=== PATIENT | female | born 1985 ===

== ENCOUNTER 2019-06-07 10:24 | Emergency (ER) | payer OTHER ==
[2019-06-07 10:43] VITALS: RESP 16
--- NOTE | 2019-06-07 11:32 | ED ---
ENT HPI - General Chief complaint: ENT Stated complaint: ear pain Time Seen by Provider: 06/07/19 10:49 Source: patient Mode of arrival: EMS Limitations: no limitations - History of Present Illness Initial comments: Patient is a 33-year-old female presenting to the emergency Department with complaints of bilateral ear pain secondary to bilateral ear infection has been going on for 3 days. Patient states she went to [facility] ER approximately 3 days ago and was diagnosed with a double ear infection and was placed on oral amoxicillin and eardrops. Patient was to see an ENT today however when she got to the office they told her that they do not accept her insurance. They were supposed to placed ear hussein today. Patient is presenting for an increase in pain and stating she does not believe the eardrops getting into her ear. Patient states she had 100 temperature yesterday. Patient denies nausea, vomiting, abdominal pain. Patient has no other complaints at this time. Upon arrival to the ER, vital signs are stable. - Related Data Home Medications Medication Instructions Recorded Confirmed ARIPiprazole [Abilify] 30 mg PO HS 06/07/19 06/07/19 Acetaminophen Tab [Tylenol Tab] 650 mg PO Q4H PRN 06/07/19 06/07/19 Dextroamphetamine/Amphetamine 20 mg PO BID 06/07/19 06/07/19 [Adderall] Gabapentin [Neurontin] 200 mg PO HS 06/07/19 06/07/19 Ibuprofen [Motrin] 800 mg PO Q6H PRN 06/07/19 06/07/19 Methotrexate Sodium [Methotrexate] 7.5 mg PO SA 06/07/19 06/07/19 Venlafaxine HCl [Effexor XR] 150 mg PO HS 06/07/19 06/07/19 Previous Rx's Medication Instructions Recorded Hydrocodone/Acetaminophen [[place] 1 tab PO Q6HR PRN 2 Days #6 tab 06/07/19 5-325] Allergies Allergy/AdvReac Type Severity Reaction Status Date / Time No Known Allergies Allergy Unverified 06/07/19 10:33 Review of Systems ROS Statement: Those systems with pertinent positive or pertinent negative responses have been documented in the HPI. ROS Other: All systems not noted in ROS Statement are negative. General Exam - General Exam Comments Initial Comments: GENERAL: Well-appearing, well-nourished and in no acute distress. HEAD: Atraumatic, normocephalic. EYES: Pupils equal round and reactive to light, extraocular movements intact, sclera anicteric, conjunctiva are normal. ENT: Bilateral EACs are edematous, erythematous and painful. Bilateral TMs are not visible secondary to swelling. Nares patent, oropharynx clear without exudates. Moist mucous membranes. NECK: Normal range of motion, supple without lymphadenopathy or JVD. LUNGS: Breath sounds clear to auscultation bilaterally and equal. No wheezes rales or rhonchi. HEART: Regular rate and rhythm without murmurs, rubs or gallops. ABDOMEN: Soft, nontender, normoactive bowel sounds. No guarding, no rebound. No masses appreciated. : Deferred EXTREMITIES: Normal range of motion, no pitting or edema. No clubbing or cyanosis. NEUROLOGICAL: Cranial nerves II through XII grossly intact. Normal speech, normal gait. PSYCH: Normal mood, normal affect. SKIN: Warm, Dry, normal turgor. Patient has rashes secondary to psoriasis behind ears, and scalp. Limitations: no limitations Course Vital Signs 06/07/19 06/07/19 06/07/19 10:36 11:40 13:24 Temperature 97.5 F L 97.3 F L 97.3 F L Pulse Rate 104 H 94 94 Respiratory 16 16 16 Rate Blood Pressure 140/105 140/92 140/92 O2 Sat by Pulse 100 100 100 Oximetry Medical Decision Making - Medical Decision Making Patient is a 33-year-old female presenting with bilateral otitis externa. Patient was started on amoxicillin and eardrops approximately 3 days ago by [facility] ER. Patient went to an ENT for follow-up however when she got to the appointment they said they do not accept her insurance. So patient came here secondary to an increase in pain and not able to get eardrops in her ear. On exam patient has bilateral EAC swelling and pain with palpation. Patient was given pain medications and bilateral ear hussein were placed. Patient was given eardrops and short course of pain meds to go home with. Patient was given another ENT referral. Patient will continue amoxicillin. Patient stable for discharge at this time. Return parameters were discussed with patient she verbalized understanding. Case discussed with Dr. Weathers. Disposition Clinical Impression: Otitis externa of both ears Disposition: HOME SELF-CARE Condition: Stable Instructions (If sedation given, give patient instructions): Otitis Externa (ED) Additional Instructions: Please return to the Emergency Department if symptoms worsen or any other concerns. Follow-up with ENT as discussed. Prescriptions: Hydrocodone/Acetaminophen [[place] 5-325] 1 tab PO Q6HR PRN 2 Days #6 tab PRN Reason: Pain Is patient prescribed a controlled substance at d/c from ED?: Yes Referrals: Nonstaff,Physician [Primary Care Provider] - 1-2 days Adrián Donovan MD [STAFF PHYSICIAN] - 1-2 days
[2019-06-07 11:40] VITALS: BP 140/92; PULSE 94; TEMP 97.3
[2019-06-07] MEDS: KETOROLAC 60 MG/2 ML VIAL IM STA ×2 (11:44→11:56)
[2019-06-07] MEDS ORDERED: CIPROFLOXACIN-DEXAMETH 0.3-0.1% DROPS 7.5 ML BTL BOTH EARS STA (12:18)
[2019-06-07] MEDS ORDERED: HYDROcodone/APAP 5-325MG 1 EACH TAB PO STA (12:19)
[2019-06-07] MEDS ORDERED: NEOMYCIN-POLYMYXIN-HC (3.5-10,000-10 MG) OTIC DROPS 10 ML BTL BOTH EARS STA (12:27)
== END 2019-06-07 13:26 | disposition home or self-care (01) ==
LOC: EC 10:24
DX: H60.93 Unspecified otitis externa, bilateral (principal); L40.9 Psoriasis, unspecified; Z79.899 Other long term (current) drug therapy
CPT/HCPCS: 99283; 96372; J1885

== ENCOUNTER 2019-08-26 19:05 | Emergency (ER) | payer OTHER ==
[2019-08-26 19:34] VITALS: RESP 18; TEMP 97.4
[2019-08-26] MEDS ORDERED: MORPHINE SULFATE 4 MG/ML SYRINGE IV STA (19:48)
[2019-08-26] MEDS ORDERED: SODIUM CHLORIDE 0.9% 1,000 ML IV STA ×2 (19:48)
[2019-08-26] MEDS ORDERED: SODIUM CHLORIDE 0.9% 500 ML 500 ML IV STA (19:48)
[2019-08-26] MEDS ORDERED: ONDANSETRON 4 MG/2 ML VIAL IVP STA (19:48)
[2019-08-26] MEDS ORDERED: KETOROLAC 30 MG/ML 1 ML VIAL IVP STA (19:49)
--- NOTE | 2019-08-26 19:50 | ED ---
Female Urogenital HPI - General Chief complaint: Urogenital Stated complaint: back pain Time Seen by Provider: 08/26/19 19:08 Source: patient, EMS, RN notes reviewed, old records reviewed Mode of arrival: EMS Limitations: no limitations - History of Present Illness Initial comments: this is a 30-year-old female here for evaluation patient closely for evaluation regards to proteinaceous versus urinary tract infection she was treated in patient facility UTI kidney infection. Patient states symptoms have been persistent with bilateral flank pain but no fevers no nausea vomiting no diarrhea no other complaints. Patient did take medication as prescribed. No significant medical history no travel history or sick contacts MD Complaint: dysuria, other (bilateral flank pain) -: days(s) Radiation: L flank, R flank Severity: mild Severity scale (1-10): 2 Quality: dull Consistency: constant Improves with: none Patient : No Associated Symptoms: denies other symptoms - Related Data Sexually active: No Home Medications Medication Instructions Recorded Confirmed ARIPiprazole [Abilify] 30 mg PO HS 06/07/19 06/07/19 Acetaminophen Tab [Tylenol Tab] 650 mg PO Q4H PRN 06/07/19 06/07/19 Dextroamphetamine/Amphetamine 20 mg PO BID 06/07/19 06/07/19 [Adderall] Gabapentin [Neurontin] 200 mg PO HS 06/07/19 06/07/19 Ibuprofen [Motrin] 800 mg PO Q6H PRN 06/07/19 06/07/19 Methotrexate Sodium [Methotrexate] 7.5 mg PO SA 06/07/19 06/07/19 Venlafaxine HCl [Effexor XR] 150 mg PO HS 06/07/19 06/07/19 Previous Rx's Medication Instructions Recorded Hydrocodone/Acetaminophen [[place] 1 tab PO Q6HR PRN 2 Days #6 tab 06/07/19 5-325] Allergies Allergy/AdvReac Type Severity Reaction Status Date / Time No Known Allergies Allergy Unverified 06/07/19 10:33 Review of Systems ROS Statement: Those systems with pertinent positive or pertinent negative responses have been documented in the HPI. ROS Other: All systems not noted in ROS Statement are negative. Past Medical History Past Medical History: Diabetes Mellitus History of Any Multi-Drug Resistant Organisms: None Reported Past Psychological History: No Psychological Hx Reported Smoking Status: Current every day smoker Past Alcohol Use History: None Reported Past Drug Use History: None Reported General Exam Limitations: no limitations General appearance: alert, in no apparent distress Head exam: Present: atraumatic, normocephalic, normal inspection Eye exam: Present: normal appearance, PERRL, EOMI. Absent: scleral icterus, conjunctival injection, periorbital swelling ENT exam: Present: normal exam, mucous membranes moist Neck exam: Present: normal inspection. Absent: tenderness, meningismus, lymphadenopathy Respiratory exam: Present: normal lung sounds bilaterally. Absent: respiratory distress, wheezes, rales, rhonchi, stridor Cardiovascular Exam: Present: regular rate, normal rhythm, normal heart sounds. Absent: systolic murmur, diastolic murmur, rubs, gallop, clicks GI/Abdominal exam: Present: soft, normal bowel sounds. Absent: distended, tenderness, guarding, rebound, rigid Extremities exam: Present: normal inspection, full ROM, normal capillary refill. Absent: tenderness, pedal edema, joint swelling, calf tenderness Back exam: Present: normal inspection Neurological exam: Present: alert, oriented X3, CN II-XII intact Psychiatric exam: Present: normal affect, normal mood Skin exam: Present: warm, dry, intact, normal color. Absent: rash Course Vital Signs 08/26/19 08/26/19 19:20 22:29 Temperature 97.4 F L Pulse Rate 103 H 98 Respiratory 18 18 Rate Blood Pressure 130/90 132/94 O2 Sat by Pulse 100 100 Oximetry - Reevaluation(s) Reevaluation #1: medical record and prior testing have been reviewed Is in no acute distress Medical Decision Making - Medical Decision Making 33-year-old female ER for evaluation with what she believes is persistent urinary tract infection patient is CT labwork urine negative. The ER. Patient will be discharged home - Lab Data Result diagrams: 08/26/19 20:29 08/26/19 20:29 Lab Results 08/26/19 08/26/19 12 Range/Units 20:29 20:29 20:29 WBC 6.5 (3.8-10.6) k/uL RBC 4.68 (3.80-5.40) m/uL Hgb 13.9 (11.4-16.0) gm/dL Hct 41.4 (34.0-46.0) % MCV 88.4 (80.0-100.0) fL MCH 29.7 (25.0-35.0) pg MCHC 33.6 (31.0-37.0) g/dL RDW 14.7 (11.5-15.5) % Plt Count 378 (150-450) k/uL Neutrophils % 58 % Lymphocytes % 33 % Monocytes % 5 % Eosinophils % 3 % Basophils % 1 % Neutrophils # 3.8 (1.3-7.7) k/uL Lymphocytes # 2.1 (1.0-4.8) k/uL Monocytes # 0.3 (0-1.0) k/uL Eosinophils # 0.2 (0-0.7) k/uL Basophils # 0.0 (0-0.2) k/uL Sodium 138 (137-145) mmol/L Potassium 4.7 (3.5-5.1) mmol/L Chloride 102 (98-107) mmol/L Carbon Dioxide 27 (22-30) mmol/L Anion Gap 9 mmol/L BUN 11 (7-17) mg/dL Creatinine 0.87 (0.52-1.04) mg/dL Est GFR (CKD-EPI)AfAm >90 (>60 ml/min/1.73 sqM) Est GFR (CKD-EPI)NonAf 88 (>60 ml/min/1.73 sqM) Glucose 74 (74-99) mg/dL Plasma Lactic Acid [place] 1.2 (0.7-2.0) mmol/L Calcium 10.1 (8.4-10.2) mg/dL Phosphorus 3.9 (2.5-4.5) mg/dL Magnesium 2.1 (1.6-2.3) mg/dL Total Bilirubin 0.3 (0.2-1.3) mg/dL AST 23 (14-36) U/L ALT 34 (9-52) U/L Alkaline Phosphatase 61 (38-126) U/L Creatine Kinase 24 L (30-135) U/L Total Protein 7.8 (6.3-8.2) g/dL Albumin 4.8 (3.5-5.0) g/dL Urine Color Urine Appearance (Clear) Urine pH (5.0-8.0) Ur Specific [place] (1.001-1.035) Urine Protein (Negative) Urine Glucose (UA) (Negative) Urine Ketones (Negative) Urine Blood (Negative) Urine Nitrite (Negative) Urine Bilirubin (Negative) Urine Urobilinogen (<2.0) mg/dL Ur Leukocyte Esterase (Negative) Urine RBC (0-5) /hpf Urine WBC (0-5) /hpf Ur Squamous Epith Cells (0-4) /hpf Urine Mucus (None) /hpf 08/26/19 Range/Units 20:29 WBC (3.8-10.6) k/uL RBC (3.80-5.40) m/uL Hgb (11.4-16.0) gm/dL Hct (34.0-46.0) % MCV (80.0-100.0) fL MCH (25.0-35.0) pg MCHC (31.0-37.0) g/dL RDW (11.5-15.5) % Plt Count (150-450) k/uL Neutrophils % % Lymphocytes % % Monocytes % % Eosinophils % % Basophils % % Neutrophils # (1.3-7.7) k/uL Lymphocytes # (1.0-4.8) k/uL Monocytes # (0-1.0) k/uL Eosinophils # (0-0.7) k/uL Basophils # (0-0.2) k/uL Sodium (137-145) mmol/L Potassium (3.5-5.1) mmol/L Chloride (98-107) mmol/L Carbon Dioxide (22-30) mmol/L Anion Gap mmol/L BUN (7-17) mg/dL Creatinine (0.52-1.04) mg/dL Est GFR (CKD-EPI)AfAm (>60 ml/min/1.73 sqM) Est GFR (CKD-EPI)NonAf (>60 ml/min/1.73 sqM) Glucose (74-99) mg/dL Plasma Lactic Acid [place] (0.7-2.0) mmol/L Calcium (8.4-10.2) mg/dL Phosphorus (2.5-4.5) mg/dL Magnesium (1.6-2.3) mg/dL Total Bilirubin (0.2-1.3) mg/dL AST (14-36) U/L ALT (9-52) U/L Alkaline Phosphatase (38-126) U/L Creatine Kinase (30-135) U/L Total Protein (6.3-8.2) g/dL Albumin (3.5-5.0) g/dL Urine Color Yellow Urine Appearance Clear (Clear) Urine pH 6.5 (5.0-8.0) Ur Specific [place] 1.008 (1.001-1.035) Urine Protein Negative (Negative) Urine Glucose (UA) Negative (Negative) Urine Ketones Negative (Negative) Urine Blood Moderate H (Negative) Urine Nitrite Negative (Negative) Urine Bilirubin Negative (Negative) Urine Urobilinogen <2.0 (<2.0) mg/dL Ur Leukocyte Esterase Negative (Negative) Urine RBC 1 (0-5) /hpf Urine WBC 2 (0-5) /hpf Ur Squamous Epith Cells 4 (0-4) /hpf Urine Mucus Rare H (None) /hpf - EKG Data -: EKG Interpreted by Me (EKG shows sinus tachycardia rate of 104, RI 160, QRS 80, QTC 431) Disposition Clinical Impression: Bilateral flank pain Disposition: HOME SELF-CARE Condition: Good Instructions (If sedation given, give patient instructions): Flank Pain (ED) Is patient prescribed a controlled substance at d/c from ED?: No Referrals: Ajay Hart MD [Primary Care Provider] - 1-2 days
[2019-08-26 20:40] LABS: Basophils % (A) 1 %; Eosinophils # (A) 0.2 k/uL (0-0.7); Eosinophils % (A) 3 %; HCT 41.4 % (34.0-46.0); HGB 13.9 gm/dL (11.4-16.0); Lymphocytes # (A) 2.1 k/uL (1.0-4.8); Lymphocytes % (A) 33 %; MCH 29.7 pg (25.0-35.0); MCHC 33.6 g/dL (31.0-37.0); MCV 88.4 fL (80.0-100.0); Mean Platelet Volume 9.4; Monocytes # (A) 0.3 k/uL (0-1.0); Monocytes % (A) 5 %; Neutrophils # (A) 3.8 k/uL (1.3-7.7); Neutrophils % (A) 58 %; Platelet Count 378 k/uL (150-450); RBC 4.68 m/uL (3.80-5.40); RDW 14.7 % (11.5-15.5); WBC 6.5 k/uL (3.8-10.6)
[2019-08-26 20:41] LABS: Appearance,Urine Clear (Clear); Bilirubin,Urine Negative (Negative); Blood,Urine Moderate (Negative); Color,Urine Yellow; Glucose,Urine (UA) Negative (Negative); Ketones,Urine Negative (Negative); Leukocyte Esterase,Urine Negative (Negative); Mucus,Urine Rare /hpf; Nitrite,Urine Negative (Negative); PH, Urine 6.5 (5.0-8.0); Protein,Urine Negative (Negative); RBC,Urine 1 /hpf (0-5); Specific Gravity,Urine 1.008 (1.001-1.035); Squamous Epithelial Cell,Urine 4 /hpf (0-4); Urobilinogen,Urine <2.0 mg/dL (<2.0); WBC,Urine 2 /hpf (0-5)
[2019-08-26 20:56] LABS: ALT 34 U/L (9-52); AST 23 U/L (14-36); African American GFR (CKD) >90 (>60 ml/min/1.73 sqM); Albumin 4.8 g/dL (3.5-5.0); Alkaline Phosphatase 61 U/L (38-126); Anion Gap 9 mmol/L; Blood Urea Nitrogen 11 mg/dL (7-17); Calcium 10.1 mg/dL (8.4-10.2); Carbon Dioxide 27 mmol/L (22-30); Chloride 102 mmol/L (98-107); Creatine Kinase 24 U/L (30-135); Glucose 74 mg/dL (74-99); Magnesium 2.1 mg/dL (1.6-2.3); Non-African American GFR(CKD) 88 (>60 ml/min/1.73 sqM); Phosphorus 3.9 mg/dL (2.5-4.5); Potassium 4.7 mmol/L (3.5-5.1); Sodium 138 mmol/L (137-145); Total Bilirubin 0.3 mg/dL (0.2-1.3); Total Protein 7.8 g/dL (6.3-8.2)
--- NOTE | 2019-08-26 21:31 | CT ---
EXAMINATION TYPE: CT abdomen pelvis wo con DATE OF EXAM: 08/26/2019 COMPARISON: None HISTORY: Pain. Pt states she has been treated for kidney infection that is not clearing up CT DLP: 913.3 mGycm Automated exposure control for dose reduction was used. Multiple axial sections were obtained from the diaphragm to the floor the pelvis with no contrast. Lung bases are clear. There is no pleural effusion. Heart size is normal. Liver spleen pancreas gallbladder stomach appear normal. Bile ducts are not dilated. There is no adre nal mass. Kidneys have normal size and contour. There is no hydronephrosis. There is no retroperitone al adenopathy. Appendix appears normal. Ureters are not dilated. Bladder distends smoothly. There is no inguinal hernia. Uterus is anteverted. There is no free fluid in the pelvis. There is no mesenteri c edema. There is no ascites or free air. There is small umbilical hernia that contains fat. Lumbar vertebra have normal spacing and alignment. Posterior elements are intact. The bony pelvis is intact. IMPRESSION: Small umbilical hernia. Normal appendix. No renal stone or obstruction.
[2019-08-26 22:32] VITALS: BP 132/94; PULSE 98
== END 2019-08-26 22:40 | disposition home or self-care (01) ==
LOC: EC 19:05
DX: R10.9 Unspecified abdominal pain (principal); R30.0 Dysuria; F17.200 Nicotine dependence, unspecified, uncomplicated
CPT/HCPCS: 36415; 93005; 80053; 82550; 83605; 83735; 84100; 85025; 81001; 87040; 74176; 99285; 96365; 96375 ×3; 96361; J2270; J2405; J0696; J1885

== ENCOUNTER 2020-04-18 22:37 | Emergency (ER) | payer OTHER ==
[2020-04-18] MEDS ORDERED: ACETAMINOPHEN TAB 500 MG TAB PO STA (23:11)
--- NOTE | 2020-04-18 23:47 | US ---
EXAMINATION TYPE: US venous doppler duplex UE LT DATE OF EXAM: 04/18/2020 COMPARISON: NONE CLINICAL HISTORY: pain, swelling. left arm pain SIDE PERFORMED: left Left Arm: no evidence of DVT as visualized IMPRESSION: No evidence of deep vein thrombosis in the left arm.
--- NOTE | 2020-04-18 23:53 | XR ---
EXAMINATION TYPE: XR chest 2V DATE OF EXAM: 04/18/2020 COMPARISON: NONE HISTORY: Chest pain TECHNIQUE: 2 views FINDINGS: Heart and mediastinum are normal. Lungs are clear. Diaphragm is normal. Bony thorax appears normal. IMPRESSION: Normal chest
--- NOTE | 2020-04-19 00:02 | ED ---
General Adult HPI - General Chief complaint: Extremity Injury, Upper Stated complaint: Lt Arm Pain Time Seen by Provider: 04/18/20 22:47 Source: patient, RN notes reviewed, old records reviewed Mode of arrival: ambulatory Limitations: no limitations - History of Present Illness Initial comments: Patient is a 34-year-old female who presents emergency department today with 2 days of left arm irritation and pain within the muscles. She states she's noticed some swelling as well. She was seen at [facility] yesterday had x- rays which were negative and placed in Brent wrap. She reports the swelling seemed to be worse so she took the Brent wrap off. She stated that she was feeling unwell or had a fever that he medics wrist provider told her to come to the ER for an ultrasound and further evaluation. She states that she is a smoker. States she felt slightly febrile and was concerned for the swelling of this time. She states no history of blood clots. Patient reports that the pain started within her left wrist. - Related Data Home Medications Medication Instructions Recorded Confirmed ARIPiprazole [Abilify] 30 mg PO HS 06/07/19 06/07/19 Acetaminophen Tab [Tylenol Tab] 650 mg PO Q4H PRN 06/07/19 06/07/19 Dextroamphetamine/Amphetamine 20 mg PO BID 06/07/19 06/07/19 [Adderall] Gabapentin [Neurontin] 200 mg PO HS 06/07/19 06/07/19 Ibuprofen [Motrin] 800 mg PO Q6H PRN 06/07/19 06/07/19 Venlafaxine HCl [Effexor XR] 150 mg PO HS 06/07/19 06/07/19 metHOTREXate sodium [Methotrexate] 7.5 mg PO SA 06/07/19 06/07/19 Previous Rx's Medication Instructions Recorded Hydrocodone/Acetaminophen [[place] 1 tab PO Q6HR PRN 2 Days #6 tab 06/07/19 5-325] Allergies Allergy/AdvReac Type Severity Reaction Status Date / Time No Known Allergies Allergy Verified 04/18/20 22:58 Review of Systems ROS Statement: Those systems with pertinent positive or pertinent negative responses have been documented in the HPI. ROS Other: All systems not noted in ROS Statement are negative. Past Medical History Past Medical History: Diabetes Mellitus Additional Past Medical History / Comment(s): endometriosis History of Any Multi-Drug Resistant Organisms: None Reported Additional Past Surgical History / Comment(s): exp lap Past Psychological History: No Psychological Hx Reported Smoking Status: Current every day smoker Past Alcohol Use History: None Reported Past Drug Use History: None Reported General Exam - General Exam Comments Initial Comments: 34-year-old female. Alert and oriented. Limitations: no limitations General appearance: alert, in no apparent distress Head exam: Present: atraumatic, normocephalic, normal inspection Eye exam: Present: normal appearance, PERRL, EOMI. Absent: scleral icterus, conjunctival injection, periorbital swelling ENT exam: Present: normal exam, mucous membranes moist Neck exam: Present: normal inspection. Absent: tenderness, meningismus, lymphadenopathy Respiratory exam: Present: normal lung sounds bilaterally. Absent: respiratory distress, wheezes, rales, rhonchi, stridor Cardiovascular Exam: Present: regular rate, normal rhythm, normal heart sounds. Absent: systolic murmur, diastolic murmur, rubs, gallop, clicks GI/Abdominal exam: Present: soft, normal bowel sounds. Absent: distended, tenderness, guarding, rebound, rigid Extremities exam: Present: normal inspection, full ROM, normal capillary refill. Absent: tenderness, pedal edema, joint swelling, calf tenderness Left Upper Arm exam: Present: normal inspection, full ROM Elbow exam: Present: normal inspection, full ROM Forearm Wrist exam: Present: normal inspection, full ROM, other (Patient is mildly dilated veins on the left arm appear to the right. No overlying skin changes. Full range of motion of all extremity.) Hand Wrist exam: Present: normal inspection, full ROM Neuro motor exam: Present: wrist extension intact, thumb opposition intact, thumb IP flexion intact, thumb adduction intact, fingers 2-5 abduction intact Back exam: Present: normal inspection Neurological exam: Present: alert, oriented X3, CN II-XII intact Psychiatric exam: Present: normal affect, normal mood Skin exam: Present: warm, dry, intact, normal color. Absent: rash Course Vital Signs 04/18/20 04/18/20 22:54 23:15 Temperature 98.1 F 99.8 F H Pulse Rate 99 Respiratory 20 Rate Blood Pressure 141/83 Medical Decision Making - Medical Decision Making 34-year-old female presents to return today for concerns for swelling and pain in the left arm. She does have some mildly enlarged veins compared to the right. She is also concern for low-grade temperature 90.9. She is given Tylenol. She had x-rays at [facility] which showed no fracture she denies any fall or trauma to the arm. At this time there is no signs of rash or puncture wound. Ultrasound today is negative for DVT within the left arm. Chest x-ray was reviewed and normal. I advised the Patient to follow-up with her primary care physician. Take anti-inflammatory medication for pain. I discussed the Patient needs to wait for [place] testing with a low-grade temperature. Patient is agreeable to treatment plan. - Radiology Data Radiology results: report reviewed Chest x-ray is negative for acute process. Ultrasound is negative for DVT in left arm. Disposition Clinical Impression: Left arm pain Disposition: HOME SELF-CARE Condition: Good Instructions (If sedation given, give patient instructions): Arm Pain (ED), Hand Sprain (ED) Additional Instructions: Patient advised to follow-up with her primary care physician. Take Motrin Tylenol for pain. Return to emergency department if any alarming signs or symptoms occur. Is patient prescribed a controlled substance at d/c from ED?: No Referrals: Nonstaff,Physician [Primary Care Provider] - 1-2 days Beti Marie MD [REFERRING] - 1-2 days Time of Disposition: 00:24
[2020-04-19 00:36] VITALS: BP 135/80; PULSE 89; RESP 18; TEMP 98
== END 2020-04-19 00:37 | disposition home or self-care (01) ==
LOC: EC 22:37
DX: M79.602 Pain in left arm (principal); R50.9 Fever, unspecified; I87.8 Other specified disorders of veins; M79.89 Other specified soft tissue disorders; F17.200 Nicotine dependence, unspecified, uncomplicated; Z79.899 Other long term (current) drug therapy; Z20.828 Contact with and (suspected) exposure to other viral communicable diseases
CPT/HCPCS: 71046; 93971; 99284; U0003

== ENCOUNTER 2020-10-11 22:51 | Emergency (ER) | payer OTHER ==
[2020-10-11 23:06] VITALS: RESP 18
--- NOTE | 2020-10-11 23:17 | ED ---
General Adult HPI - General Chief complaint: Dizziness Stated complaint: Dizziness Time Seen by Provider: 10/11/20 23:00 Source: patient, EMS Mode of arrival: EMS Limitations: no limitations - History of Present Illness Initial comments: This patient is a 34-year-old woman who presents with complaint that she thinks she is coming down with urinary tract infection. Patient states she has history of interstitial cystitis and she does get frequent urinary tract infections. She states that about 2 days ago she noticed she was urinating more frequently. Her abdomen felt a little bloated. She is having some dysuria. She states that it feels a little different than usual in that today she noted she was feeling a little lightheaded and therefore she came here to be evaluated. Patient also had started taking some Azo for the suspected urinary tract infection. She has not noted fever or chills. No chest pain, dyspnea or cough, vomiting or diar omero. Patient states she has a little bit of chronic constipation secondary to using Suboxone. Onset/Timin -: days(s) Location: abdomen Radiation: non-radiation Quality: dull Consistency: constant Improves with: none Worsens with: other Associated Symptoms: other (Lightheadedness) Treatments Prior to Arrival: other (Basophils) - Related Data Home Medications Medication Instructions Recorded Confirmed ARIPiprazole [Abilify] 30 mg PO HS 06/07/19 06/07/19 Acetaminophen Tab [Tylenol Tab] 650 mg PO Q4H PRN 06/07/19 06/07/19 Dextroamphetamine/Amphetamine 20 mg PO BID 06/07/19 06/07/19 [Adderall] Gabapentin [Neurontin] 200 mg PO HS 06/07/19 06/07/19 Ibuprofen [Motrin] 800 mg PO Q6H PRN 06/07/19 06/07/19 Venlafaxine HCl [Effexor XR] 150 mg PO HS 06/07/19 06/07/19 metHOTREXate sodium [Methotrexate] 7.5 mg PO SA 06/07/19 06/07/19 Previous Rx's Medication Instructions Recorded Hydrocodone/Acetaminophen [[place] 1 tab PO Q6HR PRN 2 Days #6 tab 06/07/19 5-325] Allergies Allergy/AdvReac Type Severity Reaction Status Date / Time No Known Allergies Allergy Verified 04/18/20 22:58 Review of Systems ROS Statement: Those systems with pertinent positive or pertinent negative responses have been documented in the HPI. ROS Other: All systems not noted in ROS Statement are negative. Constitutional: Denies: fever, chills Respiratory: Denies: cough, dyspnea Cardiovascular: Denies: chest pain, palpitations, edema Gastrointestinal: Reports: abdominal pain Genitourinary: Reports: dysuria Musculoskeletal: Denies: back pain Skin: Reports: rash (Psoriasis) Neurological: Denies: headache, weakness Past Medical History Past Medical History: Diabetes Mellitus Additional Past Medical History / Comment(s): endometriosis History of Any Multi-Drug Resistant Organisms: None Reported Additional Past Surgical History / Comment(s): exp lap Past Psychological History: No Psychological Hx Reported Smoking Status: Current every day smoker Past Alcohol Use History: None Reported Past Drug Use History: None Reported General Exam Limitations: no limitations General appearance: alert, in no apparent distress Head exam: Present: atraumatic, normocephalic Eye exam: Present: normal appearance. Absent: scleral icterus, conjunctival injection ENT exam: Present: normal oropharynx Neck exam: Present: normal inspection, full ROM. Absent: meningismus, lymphadenopathy Respiratory exam: Present: normal lung sounds bilaterally. Absent: respiratory distress, wheezes, rales, rhonchi, stridor Cardiovascular Exam: Present: regular rate, normal rhythm, normal heart sounds. Absent: systolic murmur, diastolic murmur, rubs, gallop GI/Abdominal exam: Present: soft. Absent: distended, tenderness, guarding, rebound, rigid, mass Extremities exam: Present: normal inspection, normal capillary refill. Absent: pedal edema, calf tenderness Back exam: Present: normal inspection. Absent: CVA tenderness (R), CVA tenderness (L) Neurological exam: Present: alert Skin exam: Present: warm, dry, intact, normal color. Absent: rash Course Vital Signs 10/11/20 10/11/20 10/12/20 22:53 23:02 01:58 Temperature 98.0 F 98.1 F Pulse Rate 89 101 H Respiratory 16 18 18 Rate Blood Pressure 140/96 139/95 O2 Sat by Pulse 100 99 Oximetry Medical Decision Making - Lab Data Result diagrams: 10/12/20 00:08 10/12/20 00:08 Lab Results 10/11/20 10/11/20 10/12/20 Range/Units 23:37 23:37 00:08 WBC 4.9 (3.8-10.6) k/uL RBC 4.80 (3.80-5.40) m/uL Hgb 13.5 (11.4-16.0) gm/dL Hct 40.9 (34.0-46.0) % MCV 85.3 (80.0-100.0) fL MCH 28.1 (25.0-35.0) pg MCHC 33.0 (31.0-37.0) g/dL RDW 15.3 (11.5-15.5) % Plt Count 255 (150-450) k/uL MPV 8.7 Neutrophils % 46 % Lymphocytes % 37 % Monocytes % 8 % Eosinophils % 5 % Basophils % 1 % Neutrophils # 2.3 (1.3-7.7) k/uL Lymphocytes # 1.8 (1.0-4.8) k/uL Monocytes # 0.4 (0-1.0) k/uL Eosinophils # 0.3 (0-0.7) k/uL Basophils # 0.0 (0-0.2) k/uL Sodium (137-145) mmol/L Potassium (3.5-5.1) mmol/L Chloride (98-107) mmol/L Carbon Dioxide (22-30) mmol/L Anion Gap mmol/L BUN (7-17) mg/dL Creatinine (0.52-1.04) mg/dL Est GFR (CKD-EPI)AfAm (>60 ml/min/1.73 sqM) Est GFR (CKD-EPI)NonAf (>60 ml/min/1.73 sqM) Glucose (74-99) mg/dL Calcium (8.4-10.2) mg/dL Total Bilirubin (0.2-1.3) mg/dL AST (14-36) U/L ALT (4-34) U/L Alkaline Phosphatase (38-126) U/L Total Protein (6.3-8.2) g/dL Albumin (3.5-5.0) g/dL Urine Color Brown Urine Appearance Clear (Clear) Urine pH 5.5 (5.0-8.0) Ur Specific [place] 1.006 (1.001-1.035) Urine Protein Negative (Negative) Urine Glucose (UA) Negative (Negative) Urine Ketones Negative (Negative) Urine Blood Negative (Negative) Urine Nitrite Negative (Negative) Urine Bilirubin Negative (Negative) Urine Urobilinogen <2.0 (<2.0) mg/dL Ur Leukocyte Esterase Negative (Negative) Urine HCG, Qual Not Detected (Not Detectd) 10/12/20 Range/Units 00:08 WBC (3.8-10.6) k/uL RBC (3.80-5.40) m/uL Hgb (11.4-16.0) gm/dL Hct (34.0-46.0) % MCV (80.0-100.0) fL MCH (25.0-35.0) pg MCHC (31.0-37.0) g/dL RDW (11.5-15.5) % Plt Count (150-450) k/uL MPV Neutrophils % % Lymphocytes % % Monocytes % % Eosinophils % % Basophils % % Neutrophils # (1.3-7.7) k/uL Lymphocytes # (1.0-4.8) k/uL Monocytes # (0-1.0) k/uL Eosinophils # (0-0.7) k/uL Basophils # (0-0.2) k/uL Sodium 141 (137-145) mmol/L Potassium 4.8 (3.5-5.1) mmol/L Chloride 108 H (98-107) mmol/L Carbon Dioxide 25 (22-30) mmol/L Anion Gap 8 mmol/L BUN 18 H (7-17) mg/dL Creatinine 0.75 (0.52-1.04) mg/dL Est GFR (CKD-EPI)AfAm >90 (>60 ml/min/1.73 sqM) Est GFR (CKD-EPI)NonAf >90 (>60 ml/min/1.73 sqM) Glucose 91 (74-99) mg/dL Calcium 10.2 (8.4-10.2) mg/dL Total Bilirubin 0.4 (0.2-1.3) mg/dL AST 32 (14-36) U/L ALT 32 (4-34) U/L Alkaline Phosphatase 53 (38-126) U/L Total Protein 7.2 (6.3-8.2) g/dL Albumin 4.3 (3.5-5.0) g/dL Urine Color Urine Appearance (Clear) Urine pH (5.0-8.0) Ur Specific [place] (1.001-1.035) Urine Protein (Negative) Urine Glucose (UA) (Negative) Urine Ketones (Negative) Urine Blood (Negative) Urine Nitrite (Negative) Urine Bilirubin (Negative) Urine Urobilinogen (<2.0) mg/dL Ur Leukocyte Esterase (Negative) Urine HCG, Qual (Not Detectd) Disposition Clinical Impression: Viral syndrome, Constipation Disposition: HOME SELF-CARE Condition: Good Instructions (If sedation given, give patient instructions): Constipation (ED), Dizziness (ED) Is patient prescribed a controlled substance at d/c from ED?: No Referrals: None,Stated [Primary Care Provider] - 1-2 days
[2020-10-11 23:53] LABS: Appearance,Urine Clear (Clear); Bilirubin,Urine Negative (Negative); Blood,Urine Negative (Negative); Color,Urine Brown; Glucose,Urine (UA) Negative (Negative); Ketones,Urine Negative (Negative); Leukocyte Esterase,Urine Negative (Negative); Nitrite,Urine Negative (Negative); PH, Urine 5.5 (5.0-8.0); Protein,Urine Negative (Negative); Specific Gravity,Urine 1.006 (1.001-1.035); Urobilinogen,Urine <2.0 mg/dL (<2.0)
[2020-10-12 00:28] LABS: Basophils % (A) 1 %; Eosinophils # (A) 0.3 k/uL (0-0.7); Eosinophils % (A) 5 %; HCT 40.9 % (34.0-46.0); HGB 13.5 gm/dL (11.4-16.0); Lymphocytes # (A) 1.8 k/uL (1.0-4.8); Lymphocytes % (A) 37 %; MCH 28.1 pg (25.0-35.0); MCV 85.3 fL (80.0-100.0); Mean Platelet Volume 8.7; Monocytes # (A) 0.4 k/uL (0-1.0); Monocytes % (A) 8 %; Neutrophils # (A) 2.3 k/uL (1.3-7.7); Neutrophils % (A) 46 %; Platelet Count 255 k/uL (150-450); RDW 15.3 % (11.5-15.5); WBC 4.9 k/uL (3.8-10.6)
[2020-10-12 00:38] LABS: ALT 32 U/L (4-34); AST 32 U/L (14-36); African American GFR (CKD) >90 (>60 ml/min/1.73 sqM); Albumin 4.3 g/dL (3.5-5.0); Alkaline Phosphatase 53 U/L (38-126); Anion Gap 8 mmol/L; Blood Urea Nitrogen 18 mg/dL (7-17); Calcium 10.2 mg/dL (8.4-10.2); Carbon Dioxide 25 mmol/L (22-30); Chloride 108 mmol/L (98-107); Glucose 91 mg/dL (74-99); Non-African American GFR(CKD) >90 (>60 ml/min/1.73 sqM); Potassium 4.8 mmol/L (3.5-5.1); Sodium 141 mmol/L (137-145); Total Bilirubin 0.4 mg/dL (0.2-1.3); Total Protein 7.2 g/dL (6.3-8.2)
[2020-10-12] MEDS ORDERED: MAGNESIUM CITRATE 296 ML BOTTLE PO ONE (01:20)
[2020-10-12] MEDS ORDERED: METHADONE 5 MG TAB PO ONE (01:30)
[2020-10-12 01:59] VITALS: BP 139/95; PULSE 101; TEMP 98.1
== END 2020-10-12 01:59 | disposition home or self-care (01) ==
LOC: EC 22:51
DX: B34.9 Viral infection, unspecified (principal); R30.0 Dysuria; L40.9 Psoriasis, unspecified; K59.00 Constipation, unspecified; F17.200 Nicotine dependence, unspecified, uncomplicated
CPT/HCPCS: 36415; 80053; 81003; 81025; 85025; 99284

== ENCOUNTER → 2020-11-25 | Outpatient (CLI) | payer OTHER ==
[2020-11-25 21:36] LABS: Basophils # (A) 0.03 X 10*3/uL (0.00-0.10); Basophils % (A) 0.4 %; Eosinophils % (A) 2.5 %; HCT 41.7 % (37.2-46.3); HGB 13.1 g/dL (12.0-15.0); Lymphocytes # (A) 2.44 X 10*3/uL (0.90-5.00); Lymphocytes % (A) 30.4 %; MCH 29.9 pg (27.0-32.0); MCHC 31.4 g/dL (32.0-37.0); MCV 95.2 fL (80.0-97.0); Mean Platelet Volume 11.6 fL (9.5-12.2); Monocytes # (A) 0.89 X 10*3/uL (0.20-1.00); Monocytes % (A) 11.1 %; Neutrophils # (A) 4.44 X 10*3/uL (1.80-7.70); Neutrophils % (A) 55.4 %; Platelet Count 262 X 10*3/uL (140-440); RBC 4.38 X 10*6/uL (4.10-5.20); RDW 14.6 % (11.5-14.5); WBC 8.02 X 10*3/uL (4.50-10.00)
[2020-11-26 00:30] LABS: Gliadin AB IgA, Deaminated NEGATIVE (NEGATIVE); Gliadin AB IgA, Unit <0.2 U/mL; Gliadin AB IgG, Deaminated NEGATIVE (NEGATIVE)
[2020-11-26 01:08] LABS: Albumin 4.7 g/dL (3.80-4.90); Albumin/Globulin Ratio 2.35 (1.60-3.17); Anion Gap 10.8 mmol/L (4.00-12.00); BUN/Creat Ratio 11.11 Ratio (12.00-20.00); Calcium 9.3 mg/dL (8.7-10.3); Carbon Dioxide 24.2 mmol/L (21.6-31.8); Non-African American GFR(CKD) 82.8 (60.0-200.0); Potassium 4.4 mmol/L (3.5-5.5); Total Bilirubin 0.2 mg/dL (0.2-1.2); Total Protein 6.7 g/dL (6.2-8.2)
== END | disposition home or self-care (01) ==
LOC: LABWHC1 11:53
PROVIDERS: ATTEND Nurse Practitioner
DX: R19.4 Change in bowel habit (principal)
CPT/HCPCS: 36415; 80053; 83516; 85025

== ENCOUNTER 2020-12-22 07:27 | Day surgery (SDC) | payer OTHER ==
[2020-12-21 12:32] VITALS: BMI 34.1
[~2020-12-22 07:27] MED LIST: LACTATED RINGERS 1,000 ML IV SCH; LIDOCAINE 1% (10MG/ML) FOR IV START INTRADERMA PRN
[2020-12-22 07:55] VITALS: TEMP 97.8
[2020-12-22 08:06] LABS: Glucose,Whole Blood 96 mg/dL (75-99)
[2020-12-22] MEDS ORDERED: PROPOFOL 10 MG/ML 20 ML VIAL IV ONE (08:19)
--- NOTE | 2020-12-22 08:46 | P.PCN ---
Date of Procedure: 12/22/20 Description of Procedure: BRIEF HISTORY: Patient is a 35-year-old female presenting for a colonoscopy for hemorrhage of the anus and rectum. She reports multiple complaints including constipation, incomplete evacuation, mucus and blood per rectum. PROCEDURE PERFORMED: Colonoscopy with polypectomy. PREOPERATIVE DIAGNOSIS: Hemorrhage of the anus and rectum, no prior colonoscopy. ESTIMATED BLOOD LOSS: Minimal. IV sedation per Anesthesia. PROCEDURE: After informed consent was obtained, the patient, was brought into the endoscopy unit. IV sedation was administered by Anesthesia under continuous monitoring. Digital rectal examination was normal. Initially the Olympus CF-190 flexible video colonoscope was then inserted in the rectum, gradually advanced into the cecum without any difficulty. Careful examination was performed as the scope was gradually being withdrawn. Ileocecal valve and the appendiceal orifice were visualized and appeared normal. Prep was excellent. Mucosa of the cecum, ascending colon, transverse colon, descending colon, sigmoid colon, and rectum appeared normal, with two 3 mm polyps removed from the rectum with cold snare polypectomy. Retroflexion was performed in the rectum and no lesions were seen, low-grade internal hemorrhoids seen. The patient tolerated the procedure well. IMPRESSION: Cold snare polypectomy of 2 small polyps in the rectum. Internal hemorrhoids. Otherwise normal-appearing colon from rectum to cecum and normal appearing terminal ileum. RECOMMENDATIONS: Findings of this examination were discussed with the patient and her family. Okay to resume diet. Okay to resume medications. Await pathology from polype ctomies. Recommend repeat colonoscopy in 7 years pending pathology from polypectomy.
[2020-12-22 08:48] VITALS: RESP 16
[2020-12-22 09:12] VITALS: BP 118/77; PULSE 92
== END 2020-12-22 09:55 | disposition home or self-care (01) ==
LOC: ORWHC2ENDO 07:27
PROVIDERS: ATTEND Internal Medicine
DX: K62.1 Rectal polyp (principal); K64.8 Other hemorrhoids; K59.00 Constipation, unspecified; K08.89 Other specified disorders of teeth and supporting structures; E78.5 Hyperlipidemia, unspecified; F17.210 Nicotine dependence, cigarettes, uncomplicated; E11.9 Type 2 diabetes mellitus without complications; E07.9 Disorder of thyroid, unspecified; F32.9 Major depressive disorder, single episode, unspecified; F90.9 Attention-deficit hyperactivity disorder, unspecified type; F20.9 Schizophrenia, unspecified; Z79.84 Long term (current) use of oral hypoglycemic drugs; Z79.899 Other long term (current) drug therapy; Z79.1 Long term (current) use of non-steroidal anti-inflammatories (NSAID); Z79.891 Long term (current) use of opiate analgesic; Z79.890 Hormone replacement therapy; Z98.890 Other specified postprocedural states
CPT/HCPCS: 81025; 88305; 45385; J2704

== ENCOUNTER 2021-03-04 14:38 | Inpatient (IN) | payer MEDICAID, OTHER ==
--- NOTE | 2021-03-04 15:47 | ED ---
General Adult HPI - General Chief complaint: Psychiatric Symptoms Stated complaint: Mental health Time Seen by Provider: 03/04/21 15:15 Source: patient, police, RN notes reviewed Mode of arrival: wheelchair Limitations: no limitations - History of Present Illness Initial comments: Patient is a pleasant 35-year-old female presenting to the emergency department for mental health evaluation. Patient was brought on please pickup order. Patient states she is unclear why they brought her here. Patient states she feels that she is doing fine. No physical complaints. Patient states she has been making her appointments and has been taking her medication. Patient denies suicidal thoughts. No hallucinations. - Related Data Home Medications Medication Instructions Recorded Confirmed Dextroamphetamine/Amphetamine 30 mg PO BID 06/07/19 03/04/21 [Adderall] Gabapentin [Neurontin] 100 mg PO BID 06/07/19 03/04/21 Venlafaxine HCl [Effexor XR] 150 mg PO HS 06/07/19 03/04/21 Atorvastatin [Lipitor] 10 mg PO DAILY 12/21/20 03/04/21 Brexpiprazole [Rexulti] 4 mg PO HS 12/21/20 03/04/21 Buprenorphine HCl/Naloxone HCl 1 film SL TID PRN 12/21/20 03/04/21 [Buprenorphin-Naloxon 8-2 mg Sl] Albuterol Sulfate [Proair Hfa] 2 puff INHALATION RT-QID PRN 03/04/21 03/04/21 Budesonide/Formoterol Fumarate 2 puff INHALATION RT-BID 03/04/21 03/04/21 [Symbicort 160-4.5 Mcg Inhaler] Cariprazine HCl [Vraylar] See Taper PO DIRECTED 03/04/21 03/04/21 Docusate [Colace] 100 mg PO DAILY 03/04/21 03/04/21 LORazepam [Ativan] 1 mg PO BID PRN 03/04/21 03/04/21 Thyroid, Pork [[place] Thyroid] 30 mg PO DAILY 03/04/21 03/04/21 Allergies Allergy/AdvReac Type Severity Reaction Status Date / Time No Known Allergies Allergy Verified 03/04/21 14:49 Review of Systems ROS Statement: Those systems with pertinent positive or pertinent negative responses have been documented in the HPI. ROS Other: All systems not noted in ROS Statement are negative. Constitutional: Denies: fever Eyes: Denies: eye pain ENT: Denies: ear pain Respiratory: Denies: cough Cardiovascular: Denies: chest pain Endocrine: Denies: fatigue Gastrointestinal: Denies: abdominal pain Genitourinary: Denies: dysuria Musculoskeletal: Denies: back pain Skin: Denies: rash Neurological: Denies: weakness Psychiatric: Denies: auditory hallucinations, visual hallucinations, homicidal thoughts, suicidal thoughts Past Medical History Past Medical History: Diabetes Mellitus Additional Past Medical History / Comment(s): endometriosis, STATES SHE HAS PROBLEMS WITH HER BALANCE, RECTAL BLEEDING , ANEMIA History of Any Multi-Drug Resistant Organisms: None Reported Additional Past Surgical History / Comment(s): EXPLORATORY LAPAROSCOPIC SURGERY Past Anesthesia/Blood Transfusion Reactions: No Reported Reaction Past Psychological History: ADD/ADHD, Anxiety, Depression, Panic Disorder, Schizoaffective Disorder Smoking Status: Current every day smoker Past Alcohol Use History: None Reported Past Drug Use History: None Reported - Past Family History Mother Family Medical History: Deep Vein Thrombosis (DVT), Pulmonary Embolus General Exam Limitations: no limitations General appearance: alert, in no apparent distress Head exam: Present: atraumatic Eye exam: Present: normal appearance Neck exam: Present: normal inspection Respiratory exam: Present: normal lung sounds bilaterally Cardiovascular Exam: Present: regular rate, normal rhythm GI/Abdominal exam: Present: soft. Absent: tenderness Extremities exam: Present: normal inspection Neurological exam: Present: alert Psychiatric exam: Present: normal affect, normal mood Skin exam: Present: normal color Course Vital Signs 03/04/21 14:46 Temperature 98.7 F Pulse Rate 85 Respiratory 18 Rate Blood Pressure 154/97 O2 Sat by Pulse 98 Oximetry Medical Decision Making - Medical Decision Making Patient seen by mental health services with recommendation for admission. Patient's history is not consistent with concerns documented on petition. Patient will be admitted for psychiatric care. - Lab Data Lab Results 03/04/21 Range/Units 16:05 Urine Opiates Screen Not Detected (NotDetected) Ur Oxycodone Screen Not Detected (NotDetected) Urine Methadone Screen Not Detected (NotDetected) Ur Propoxyphene Screen Not Detected (NotDetected) Ur Barbiturates Screen Not Detected (NotDetected) U Tricyclic Antidepress Not Detected (NotDetected) Ur Phencyclidine Scrn Not Detected (NotDetected) Ur Amphetamines Screen Detected H (NotDetected) U Methamphetamines Scrn Not Detected (NotDetected) U Benzodiazepines Scrn Detected H (NotDetected) Urine Cocaine Screen Not Detected (NotDetected) U Marijuana (THC) Screen Not Detected (NotDetected) Disposition Clinical Impression: Psychosis Disposition: TRANSFER TO PSYCH HOSP/UNIT Is patient prescribed a controlled substance at d/c from ED?: No Referrals: None,Stated [Primary Care Provider] - 1-2 days Decision Time: 19:23
[2021-03-04 16:38] LABS: Amphetamine Screen,Urine Detected (NotDetected); Barbiturate Screen,Urine Not Detected (NotDetected); Benzodiazepines Screen,Urine Detected (NotDetected); Cocaine Screen,Urine Not Detected (NotDetected); Methadone Screen, Urine Not Detected (NotDetected); Opiate Screen,Urine Not Detected (NotDetected); Oxycodone Screen, Urine Not Detected (NotDetected); Phencyclidine Screen,Urine Not Detected (NotDetected); Tricyclic Antidepressant,Urine Not Detected (NotDetected); Urn Cannabinoid Scrn Not Detected (NotDetected)
[2021-03-04] MEDS ORDERED: NICOTINE 21MG/24HR PATCH TRANSDERM STA (19:22)
[2021-03-04] MEDS ORDERED: MAGNESIUM HYDROXIDE 2,400 MG/10 ML CUP PO PRN (23:18)
[2021-03-04] MEDS ORDERED: MAG HYDROX/AL HYDROX/SIMETH 30 ML CUP PO PRN (23:18)
[2021-03-04] MEDS ORDERED: ACETAMINOPHEN TAB 325 MG TAB PO PRN (23:18)
[2021-03-04] MEDS ORDERED: LORazepam 2 MG/ML INJ IM PRN (23:25)
[2021-03-04] MEDS ORDERED: HALOPERIDOL LACTATE 5 MG/ML 1 ML VIAL IM PRN (23:26)
[2021-03-04] MEDS ORDERED: ALBUTEROL INHALER 60 PUFF/8 GM INHALER (MHU) INHALATION PRN (23:27)
[2021-03-04] MEDS ORDERED: HALOPERIDOL DECANOATE 100 MG/ML 1 ML VIAL IM SCH (23:45)
[2021-03-05] MEDS: ATORVASTATIN 10 MG TAB PO SCH ×2 (01:12→22:45)
[2021-03-05] MEDS: LITHIUM CARBONATE 300 MG CAP PO SCH ×2 (01:12→22:45)
[2021-03-05] MEDS: VENLAFAXINE HCL ER 150 MG CAP PO SCH ×2 (01:13→22:45)
--- NOTE | 2021-03-05 02:15 | P.PN ---
Progress Note - Text Progress Note Date: 03/05/21 Patient manic and could not be evaluated. Will attempt again tomorrow.
[2021-03-05] MEDS ORDERED: haloperidoL 1 MG TAB PO SCH (09:00)
[2021-03-05] MEDS: NICOTINE 14MG/24HR PATCH TRANSDERM SCH (09:53)
[2021-03-05] MEDS: DOCUSATE 100 MG CAP PO SCH (09:53)
[2021-03-05] MEDS: THYROID, PORK 30 MG TAB PO SCH (09:53)
[2021-03-05] MEDS: SYMBICORT 160-4.5 MCG INHALER INHALATION SCH (10:00)
[2021-03-05 10:24] LABS: Basophils % (A) 1 %; Eosinophils # (A) 0.1 k/uL (0-0.7); Eosinophils % (A) 1 %; HCT 40.9 % (34.0-46.0); HGB 14.3 gm/dL (11.4-16.0); Lymphocytes # (A) 0.9 k/uL (1.0-4.8); Lymphocytes % (A) 14 %; MCH 32.2 pg (25.0-35.0); MCHC 34.9 g/dL (31.0-37.0); MCV 92.3 fL (80.0-100.0); Mean Platelet Volume 9.8; Monocytes # (A) 0.3 k/uL (0-1.0); Monocytes % (A) 5 %; Neutrophils % (A) 79 %; Platelet Count 225 k/uL (150-450); RBC 4.43 m/uL (3.80-5.40); RDW 12.9 % (11.5-15.5); WBC 6.4 k/uL (3.8-10.6)
[2021-03-05 10:33] LABS: ALT 32 U/L (4-34); AST 39 U/L (14-36); African American GFR (CKD) >90 (>60 ml/min/1.73 sqM); Albumin 4.4 g/dL (3.5-5.0); Alkaline Phosphatase 90 U/L (38-126); Anion Gap 7 mmol/L; Blood Urea Nitrogen 7 mg/dL (7-17); Calcium 9.7 mg/dL (8.4-10.2); Carbon Dioxide 26 mmol/L (22-30); Chloride 106 mmol/L (98-107); Glucose 100 mg/dL (74-99); Non-African American GFR(CKD) >90 (>60 ml/min/1.73 sqM); Potassium 4.3 mmol/L (3.5-5.1); Sodium 139 mmol/L (137-145); Total Bilirubin 0.5 mg/dL (0.2-1.3); Total Protein 6.7 g/dL (6.3-8.2)
--- NOTE | 2021-03-05 13:09 | P.HP ---
Psychiatric H&P - . H&P Date: 03/05/21 History & Physical: Allergies Allergy/AdvReac Type Severity Reaction Status Date / Time No Known Allergies Allergy Verified 03/05/21 01:42 Vital Signs Temp 97.6 F 03/05/21 10:01 Pulse 103 H 03/05/21 10:01 Resp 20 03/05/21 10:01 BP 129/84 03/05/21 10:01 Pulse Ox 100 03/04/21 23:13 Intake & Output 03/04/21 03/05/21 03/05/21 18:59 06:59 18:59 Weight 72.575 kg Laboratory Last Values WBC 6.4 k/uL (3.8-10.6) 03/05/21 09:51 RBC 4.43 m/uL (3.80-5.40) 03/05/21 09:51 Hgb 14.3 gm/dL (11.4-16.0) 03/05/21 09:51 Hct 40.9 % (34.0-46.0) 03/05/21 09:51 MCV 92.3 fL (80.0-100.0) 03/05/21 09:51 MCH 32.2 pg (25.0-35.0) 03/05/21 09:51 MCHC 34.9 g/dL (31.0-37.0) 03/05/21 09:51 RDW 12.9 % (11.5-15.5) 03/05/21 09:51 Plt Count 225 k/uL (150-450) 03/05/21 09:51 MPV 9.8 03/05/21 09:51 Neutrophils % 79 % 03/05/21 09:51 Lymphocytes % 14 % 03/05/21 09:51 Monocytes % 5 % 03/05/21 09:51 Eosinophils % 1 % 03/05/21 09:51 Basophils % 1 % 03/05/21 09:51 Neutrophils # 5.0 k/uL (1.3-7.7) 03/05/21 09:51 Lymphocytes # 0.9 k/uL (1.0-4.8) L 03/05/21 09:51 Monocytes # 0.3 k/uL (0-1.0) 03/05/21 09:51 Eosinophils # 0.1 k/uL (0-0.7) 03/05/21 09:51 Basophils # 0.0 k/uL (0-0.2) 03/05/21 09:51 Sodium 139 mmol/L (137-145) 03/05/21 09:51 Potassium 4.3 mmol/L (3.5-5.1) 03/05/21 09:51 Chloride 106 mmol/L (98-107) 03/05/21 09:51 Carbon Dioxide 26 mmol/L (22-30) 03/05/21 09:51 Anion Gap 7 mmol/L 03/05/21 09:51 BUN 7 mg/dL (7-17) 03/05/21 09:51 Creatinine 0.69 mg/dL (0.52-1.04) 03/05/21 09:51 Est GFR (CKD-EPI)AfAm >90 (>60 ml/min/1.73 sqM) 03/05/21 09:51 Est GFR (CKD-EPI)NonAf >90 (>60 ml/min/1.73 sqM) 03/05/21 09:51 Glucose 100 mg/dL (74-99) H 03/05/21 09:51 Calcium 9.7 mg/dL (8.4-10.2) 03/05/21 09:51 Total Bilirubin 0.5 mg/dL (0.2-1.3) 03/05/21 09:51 AST 39 U/L (14-36) H 03/05/21 09:51 ALT 32 U/L (4-34) 03/05/21 09:51 Alkaline Phosphatase 90 U/L (38-126) 03/05/21 09:51 Total Protein 6.7 g/dL (6.3-8.2) 03/05/21 09:51 Albumin 4.4 g/dL (3.5-5.0) 03/05/21 09:51 TSH 0.634 mIU/L (0.465-4.680) 03/05/21 09:51 Urine Opiates Screen Not Detected (NotDetected) 03/04/21 16:05 Ur Oxycodone Screen Not Detected (NotDetected) 03/04/21 16:05 Urine Methadone Screen Not Detected (NotDetected) 03/04/21 16:05 Ur Propoxyphene Screen Not Detected (NotDetected) 03/04/21 16:05 Ur Barbiturates Screen Not Detected (NotDetected) 03/04/21 16:05 U Tricyclic Antidepress Not Detected (NotDetected) 03/04/21 16:05 Ur Phencyclidine Scrn Not Detected (NotDetected) 03/04/21 16:05 Ur Amphetamines Screen Detected (NotDetected) H 03/04/21 16:05 U Methamphetamines Scrn Not Detected (NotDetected) 03/04/21 16:05 U Benzodiazepines Scrn Detected (NotDetected) H 03/04/21 16:05 Urine Cocaine Screen Not Detected (NotDetected) 03/04/21 16:05 U Marijuana (THC) Screen Not Detected (NotDetected) 03/04/21 16:05 Coronavirus (PCR) Not Detected (Not Detectd) 03/04/21 19:25 03/05/21 12:56 IDENTIFYING DATA: Patient is a 35-year-old female who currently lives with her mother and daughter in a house is single and unmarried and is currently unemployed. HPI: Patient presented to the hospital yesterday on a pickup order for psychiatric evaluation. Patient has claimed in the ER that she has been taking her medications and was denying any symptoms. Petition was filled out by [facility] wrapper caser who stated that patient was recently discharged from a psychiatric hospital on 02/19/21 and has been missing her appointments and not having her discharge medications. Petition also claims that she has been "guarded suspicious and paranoid". Patient also claimed that patient had "bought a plane ticket to [place] with no travel plans, she has been staying up multiple days in a row" and apparently has been leaving the house for several hours and was claiming that she is trying to get to [place] and that a man was going to pick her up. Patient was seen today for psychiatric evaluation. She was fairly concrete and had significant thought blocking. She was fairly concrete and had a constricted affect. She did attempt to engage with science writer in conversation and claims that she does not use drugs and has not been taking her medications. She appeared to have very poor insight and judgment into her condition. She was very slow to respond to questions. She was playing with her clothes and appe ared to be distracted during the interview. She claims that she is "not sure why I am here". She was a very poor historian. She denied any stressors or problems at home. She claims that her sleep has been fair and her appetite has been fair. Patient denies any suicidal or homicidal ideations intent or plan. At this time patient denies any auditory or visual hallucinations. Patient's UDS was positive for amphetamines and cocaine however she only claims that she uses cigarettes daily. PAST PSYCHIATRIC HISTORY: Patient states that she has a history of schizoaffective disorder. She was previously on Effexor, Adderall, rexulti, cariprazine, ativan. Patient has had several psychiatric admissions in the past however none on the mental unit. Her last psychiatric hospitalization was at [facility] at the beginning of the month. Patient follows up with [facility]. Patient denies any history of suicide attempts in the past. PMH: Diabetes mellitus, thyroid disorder, asthma, endometriosis ALLERGIES: as per EMR CHEMICAL DEPENDENCY HISTORY: as per HPI FAMILY PSYCHIATRIC/SUBSTANCE USE HISTORY: She states that her mother has bipolar disorder SOCIAL HISTORY: Patient was born and raised in [facility]. She claims that she completed her associate's degree in science. She claims that she is unemployed at this time and currently lives with her 3-1/2-year-old daughter and also her mother in a house. She states that she has no legal history. MENTAL STATUS EXAM: General Appearance: Patient appears to be bizarre and constricted, stated age is alert, directable, and attempts to cooperate. Patient appears to have poor hygiene and grooming. Behavior: Patient is seated without any agitated behavior. Slow to respond. Speech: Patient's speech is fluent and nonpressured. [place] Mood/Affect: Patient reports their mood is depressed, affect is congruent and constricted. Suicidality/Homicidality: Patient denies having any homicidal ideation intent or plan. Denies any suicidal ideations intent or plan Perceptions: Patient denies any visual hallucinations and denies any auditory hallucinations Though content/process: [place], poverty of content. Poor historian. Memory and concentration: AOX3, grossly intact for the purposes of this session. Can spell "WORLD" backwards Judgment and insight: poor STRENGTHS/WEAKNESSES: strength is that patient is resilient. Weakness is that patient has poor judgment and is impulsive INTELLECT: average IMPRESSIONS: Schizoaffective disorder unspecified Cocaine abuse Nicotine dependence PLAN: -Patient is admitted under involuntary status to MHU for stabilization of psychiatric symptoms and safety. Patient has not signed medication consent and is placed in patient's chart. A second certification was completed and along with petition will be filed for court. -Medications : Will start patient on her home dose of lithium 900 mg daily at bedtime, will decrease Haldol by mouth over the weekend as patient had recently received her Haldol D injection at [facility] of 75 mg IM to see if this will alleviate her blunted affect and thought blocking and will likely need to transition her onto abilify or invega next week. Continue with Effexor 75 mg daily for mood/anxiety. -Ativan and Haldol PRN for agitation/aggression -Patient was counselled on substance abuse and desired to cut back on use -Patient was informed of the risks, benefits and side effects of the medication and patient verbally consented to taking the medications verbally -Internal Medicine consult to perform medical evaluation and physical. -NRT - nicotine patch -SW on board for discharge planning. Encourage patient to participate in groups to work on coping skills. Will await deferral and court date.
[2021-03-05 17:26] LABS: Chol/HDL Ratio 3.26; Cholesterol 140 mg/dL (0-200); LDL Cholesterol,Calculated 69.4 mg/dL (0.0-131.0)
[2021-03-05 17:48] LABS: Hemoglobin A1C 5.1 % (4.0-6.0)
[2021-03-05] MEDS: haloperidoL 1 MG TAB PO SCH (22:44)
--- NOTE | 2021-03-06 00:42 | P.CONS ---
History of Present Illness - Reason for Consult Consult date: 03/06/21 - History of Present Illness The patient was seen with the mental health unit RN Neil. I was never alone with the patient The patient is a 35 yo F with a PMH of tobacco abuse, hyperlipidemia, hypothyroidism, and mild intermittent asthma who was brought into the emergency room after a pickup order due to erratic behavior. The patient was admitted to the mental health unit where she was seen and evaluated. Patient reports feeling better ever since being admitted to the hospital. She does not recall the circumstances surrounding her presentation. She denied active complaints at the time of interview. Denied chest pain, shortness of breath, fever, chills, cough, nausea, vomiting, abdominal pain, diarrhea. Laboratory evaluation from the emergency room was reviewed. Review of systems: Pertinent positives and negatives as discussed in HPI, a complete review of systems was performed and all other systems are negative. Physical examination: General: non toxic, no distress, appears at stated age, normal weight Derm: no unusual rashes/lesions no unusual ecchymoses, warm, dry Head: atraumatic, normocephalic, symmetric Eyes: EOMI, no lid lag, anicteric sclera, pupils equal round reactive to light ENT: Nose and ears atraumatic, no thrush, no pharyngeal erythema Neck: No thyromegaly, no cervical lymphadenopathy, trachea midline, supple Mouth: no lip lesion, mucus membranes moist Cardiovascular: S1S2 reg, no murmur, positive posterior tibial pulse bilateral, no edema, capillary refill less than 2 seconds Lungs: CTA bilateral, no rhonchi, no rales , no accessory muscle use Abdominal: soft, nontender to palpation, no guarding, no appreciable organomegaly, normal bowel sounds Ext: no gross muscle atrophy, muscle strength 5 out of 5 in all 4 extremities grossly, no contractures, Neuro: CN II-XI grossly intact, light touch intact all 4 extremities, finger to nose within normal limits, Psych: Alert, oriented, appropriate affect Assessment/plan Chronic conditions: Hyperlipidemia, mild intermittent asthma, hypothyroidism -Continue with home meds Psychosis -As per psychiatry Tobacco abuse -Advised on importance of cessation -Nicotine patch when necessary Thank you for allowing us to participate in the care of this patient. We will follow peripherally. Do not hesitate to contact us with questions. Someone can be reached from the [facility] hospitalist group at all hours of the day at [phone]. Past Medical History Past Medical History: Diabetes Mellitus Additional Past Medical History / Comment(s): endometriosis, STATES SHE HAS PROBLEMS WITH HER BALANCE, RECTAL BLEEDING , ANEMIA History of Any Multi-Drug Resistant Organisms: None Reported Additional Past Surgical History / Comment(s): EXPLORATORY LAPAROSCOPIC SURGERY Past Anesthesia/Blood Transfusion Reactions: No Reported Reaction Smoking Status: Current every day smoker - Past Family History Mother Family Medical History: Deep Vein Thrombosis (DVT), Pulmonary Embolus Medications and Allergies Home Medications Medication Instructions Recorded Confirmed Type Dextroamphetamine/Amphetamine 30 mg PO BID 06/07/19 03/05/21 History [Adderall] Gabapentin [Neurontin] 100 mg PO BID 06/07/19 03/05/21 History Venlafaxine HCl [Effexor XR] 150 mg PO HS 06/07/19 03/05/21 History Atorvastatin [Lipitor] 10 mg PO DAILY 12/21/20 03/05/21 History Brexpiprazole [Rexulti] 4 mg PO HS 12/21/20 03/05/21 History Buprenorphine HCl/Naloxone HCl 1 film SL TID PRN 12/21/20 03/05/21 History [Buprenorphin-Naloxon 8-2 mg Sl] Albuterol Sulfate [Proair Hfa] 2 puff INHALATION RT-QID PRN 03/04/21 03/05/21 History Budesonide/Formoterol Fumarate 2 puff INHALATION RT-BID 03/04/21 03/05/21 History [Symbicort 160-4.5 Mcg Inhaler] Cariprazine HCl [Vraylar] See Taper PO DIRECTED 03/04/21 03/05/21 History Docusate [Colace] 100 mg PO DAILY 03/04/21 03/05/21 History LORazepam [Ativan] 1 mg PO BID PRN 03/04/21 03/05/21 History Thyroid, Pork [Lamont Thyroid] 30 mg PO DAILY 03/04/21 03/05/21 History Allergies Allergy/AdvReac Type Severity Reaction Status Date / Time No Known Allergies Allergy Verified 03/05/21 01:42 Physical Exam Vitals: Vital Signs Temp Pulse Resp BP 03/05/21 10:01 97.6 F 103 H 20 129/84 Results CBC & Chem 7: 03/05/21 09:51 03/05/21 09:51 Labs: Abnormal Lab Results - Last 24 Hours (Table) 03/05/21 03/05/21 Range/Units 09:51 09:51 Lymphocytes # 0.9 L (1.0-4.8) k/uL Glucose 100 H (74-99) mg/dL AST 39 H (14-36) U/L
[2021-03-06 07:03] VITALS: RESP 16
[2021-03-06] MEDS: NICOTINE 14MG/24HR PATCH TRANSDERM SCH (09:09)
[2021-03-06] MEDS: haloperidoL 1 MG TAB PO SCH ×2 (09:09→21:29)
[2021-03-06] MEDS: THYROID, PORK 30 MG TAB PO SCH (09:09)
[2021-03-06] MEDS: DOCUSATE 100 MG CAP PO SCH (09:09)
[2021-03-06] MEDS: SYMBICORT 160-4.5 MCG INHALER INHALATION SCH ×2 (15:03→21:31)
--- NOTE | 2021-03-06 15:56 | PN ---
PROGRESS NOTE DATE OF SERVICE: 03/06/2021 CHIEF COMPLAINT: The patient was brought in on petition. She had paranoid thinking and was making other bizarre delusional statements. INTERVAL HISTORY: Patient has been doing fair. She had a quiet day yesterday. She tends to keep to herself. She will come out in the day area some. She does not interact too much with others. She did not attend groups yesterday. She said she slept fairly well last night. Today she has been up. She continues doing about the same. She is fairly withdrawn. Noted that she did attend a group briefly, though did not participate. When I reviewed history with the patient, she tended to minimize or refute most of what has been documented. She did note having been at [employer], though she did not provide any information as to the circumstances of her going into the hospital or what her treatment was. She did note that she was started on Haldol Decanoate, though could not give any more information about that and she understands that she will be due for another dose currently and says she is accepting of getting the followup injection. She has been taking her medications. She was not able to give any information as to why she was on lithium or Effexor. She did suggest to some extent that she has had depression issues, though she again did not offer any details. When I asked about her being on Suboxone, she said that was for pain and notes that she had some kind of apparent GI surgery and had been on opioid pain medications after that. She did not make any indication about having developed dependency on opioids. She also noted that she should be receiving Adderall and says that if she stops taking Adderall she does have withdrawal from it. She had no specific complaints or concerns relating to her current psychotropic medications. MENTAL STATUS: Patient walked slowly. She had a little bit a restlessness as she sat. She gave fairly good eye contact. She answered questions with brief responses. Her answers were vague and pretty limited. Her thoughts were clear. Her affect was flat. Her mood is down. She had a withdrawn manner. She seems somewhat distressed. It was difficult to assess for thought disorder. She did not make any indication of thoughts of harm. She was oriented and alert. ASSESSMENT: I will continue the current diagnosis and treatment plan. We will continue to make efforts to engage the patient in individual and group therapeutic activities. I will continue psychotropic medications the same namely Effexor XR 75 mg a day, lithium carbonate 900 mg a day and Haldol 2 mg twice a day. She will be receiving Haldol Decanoate 75 mg IM on Monday. I reviewed medication issues with the patient. We discussed indications, potential side effects and long-term concerns regarding metabolics and movement disorder issues as it relates to Haldol. I have briefly reviewed issues of lithium toxicity. I also discussed concerns relating to tolerance and dependency relating to opioids and psychostimulants. We will focus on stabilization and discharge planning. MMODL / IJN: [id number] /
[2021-03-06] MEDS: LITHIUM CARBONATE 300 MG CAP PO SCH (21:29)
[2021-03-06] MEDS: ATORVASTATIN 10 MG TAB PO SCH (21:29)
[2021-03-07] MEDS: NICOTINE 14MG/24HR PATCH TRANSDERM SCH (09:22)
[2021-03-07] MEDS: DOCUSATE 100 MG CAP PO SCH ×2 (09:22→09:25)
[2021-03-07] MEDS: SYMBICORT 160-4.5 MCG INHALER INHALATION SCH ×3 (09:22→21:29)
[2021-03-07] MEDS: THYROID, PORK 30 MG TAB PO SCH (09:22)
[2021-03-07] MEDS: haloperidoL 1 MG TAB PO SCH (09:22)
--- NOTE | 2021-03-07 19:00 | PN ---
PROGRESS NOTE DATE OF SERVICE: 03/07/2021. CHIEF COMPLAINT: The patient was brought in on petition. She had paranoid thinking, was making bizarre delusional statements. INTERVAL HISTORY: Patient has been doing fair. She had a quiet day yesterday. She comes out on the unit. She will wander about some. She interacts to a limited extent with others, though generally she seems to be comfortable in the milieu. She did not attend groups yesterday. She did not really indicate one way or another what her thoughts were about groups. She said she slept well last night. Today she has been up and out. She seems to be a little more responsive and a little brighter in her mood. She attended 2 groups today and was appropriate in groups. She said that she thinks her mood is improving, though she was uncertain as to whether she thought the medication had helped. She said she had been started on lithium when she was at [facility] and was not clear that she saw any benefit from it one way or another. She has been cooperative with care. She tolerates her psychotropic medications. MENTAL STATUS: Patient sat without restlessness. She gave fairly good eye contact. She answered questions with brief responses. She did not say a lot. She was not to spontaneous or interactive. Her affect was a little constricted though it was noteworthy that she showed a little more facial expression and seemed a little more animated than previously. Her mood was reserved though not clearly down or depressed. She showed some appropriate mood reactivity and was able to smile a little. She did not appear to be distressed. There was no outward indication of thought disorder. She did not voice any thoughts of harm. She was oriented and alert. ASSESSMENT: I will continue the current diagnosis and treatment plan. I will continue psychotropic medications the same. We will get a lithium level in the morning. In addition, she will receive Haldol Decanoate 75 mg IM, which had been initiated at [facility]. She was due for her followup injection within the last few days. I reviewed medication issues briefly with the patient including concerns about lithium toxicity and potential side effects with Haldol, namely EPS issues. We will focus on stabilization and discharge planning. MMODL / IJN: [id number] /
[2021-03-07] MEDS: ATORVASTATIN 10 MG TAB PO SCH (21:28)
[2021-03-07] MEDS: VENLAFAXINE HCL ER 75 MG CAP PO SCH (21:28)
[2021-03-07] MEDS: LITHIUM CARBONATE 300 MG CAP PO SCH (21:29)
[2021-03-08] MEDS: LORazepam 1 MG TAB PO PRN ×4 (01:12→21:48)
[2021-03-08] MEDS: SYMBICORT 160-4.5 MCG INHALER INHALATION SCH ×2 (08:18→21:01)
[2021-03-08] MEDS: THYROID, PORK 30 MG TAB PO SCH (08:19)
[2021-03-08] MEDS: NICOTINE 14MG/24HR PATCH TRANSDERM SCH (08:19)
[2021-03-08] MEDS: DOCUSATE 100 MG CAP PO SCH (08:20)
[2021-03-08] MEDS ORDERED: HALOPERIDOL DECANOATE 100 MG/ML 1 ML VIAL IM ONE (10:00)
--- NOTE | 2021-03-08 12:31 | P.PN ---
Progress Note - Text Progress Note Date: 03/08/21 Interval History: Patient was seen lying in her bed this morning and was directable and agreeable to speak with sheet writer in the office. Patient appears to be less constricted in her affect and has less thought blocking today. Her dose of Haldol by mouth was decreased over the weekend. She did receive her Haldol D injection this morning. She claims that she tolerated the injection well. She denied any complaints over the weekend. She was preoccupied with discharge today and wanting to see her daughter. She continues to be fairly concrete and poverty of content in her thought process. She states that she slept well last night. She was fairly superficial about groups.. At this time patient denies any suicidal or homical ideations, intent or plan. Patient denies any auditory, visual hallucinations and denies any paranoia or delusions. Patient denies any side effects from the medications and has been compliant with meds. Mental Status Exam: General Appearance: Patient appears to be less bizarre and constricted, stated age is alert, directable, and attempts to cooperate. Patient appears to have improving hygiene and grooming. Behavior: Patient is seated without any agitated behavior. More responsive today. Speech: Patient's speech is fluent and nonpressured. [place], improving mildly Mood/Affect: Patient reports their mood is "ok", affect is congruent and constricted. Suicidality/Homicidality: Patient denies having any homicidal ideation intent or plan. Denies any suicidal ideations intent or plan Perceptions: Patient denies any visual hallucinations and denies any auditory hallucinations Though content/process: [place], poverty of content, improving mildly. Not endorsing any delusions. Memory and concentration: AOX3, grossly intact for the purposes of this session. Judgment and insight: poor, improving mildly Assessment Schizoaffective disorder unspecified Cocaine abuse Nicotine dependence Plan: -Patient continues to meet criteria for inpatient psychiatric admission for symptom stabilization and safety. Patient has not signed adult voluntary form and and was placed in patient's chart. -Medications: Continue lithium 900 mg daily at bedtime for mood stabilization. Continue decreasing Haldol by mouth to 1 mg with the plan to titrate off. Machelle ent received Haldol D injection today 75 mg and will be due for next dose on 03/22 and every 2 weeks thereafter. Continue with Effexor 75 mg daily for mood/anxiety. -When necessary Ativan and Haldol for agitation/aggression. -NRT - nicotine patch -SW on board for discharge planning. Encouraged the patient to participate in milieu. Currently awaiting deferral with criminal attorney and court date.
[2021-03-08] MEDS: VENLAFAXINE HCL ER 75 MG CAP PO SCH (20:57)
[2021-03-08] MEDS: ATORVASTATIN 10 MG TAB PO SCH (20:58)
[2021-03-08] MEDS: LITHIUM CARBONATE 300 MG CAP PO SCH (20:58)
[2021-03-08] MEDS: haloperidoL 1 MG TAB PO SCH (20:58)
[2021-03-09 07:05] VITALS: TEMP 97.6
[2021-03-09] MEDS: NICOTINE 14MG/24HR PATCH TRANSDERM SCH (08:50)
[2021-03-09] MEDS: SYMBICORT 160-4.5 MCG INHALER INHALATION SCH ×2 (08:51→20:40)
[2021-03-09] MEDS: DOCUSATE 100 MG CAP PO SCH (08:51)
[2021-03-09] MEDS: haloperidoL 1 MG TAB PO SCH (08:52)
[2021-03-09] MEDS: THYROID, PORK 30 MG TAB PO SCH (08:52)
[2021-03-09] MEDS: LORazepam 1 MG TAB PO PRN ×3 (08:54→20:34)
--- NOTE | 2021-03-09 09:25 | P.PN ---
Progress Note - Text Progress Note Date: 03/09/21 Interval History: Patient was seen lying in her bed this morning and was directable and agreeable to speak with process description writer in the office. she was denying any overnight complaints and states that she is sleeping well. Patient appears to be less constricted in her affect and has less thought blocking today. She claims that she has been drinking more water lately and leaves that it is caused by the lithium. She states that she does not know why she is on this medication. She claims that she is going to the groups and trying to participate as best as she can. States that she has a fair energy level. She continues to be fairly concrete and poverty of content in her thought process. He was asking about when her grease maker will come and speak with her before discharge. At this time patient denies any suicidal or homical ideations, intent or plan. Patient denies any auditory, visual hallucinations and denies any paranoia or delusions. Patient denies any side effects from the medications and has been compliant with meds. Mental Status Exam: General Appearance: Patient appears to be less bizarre and constricted, stated age is alert, directable, and attempts to cooperate. Patient appears to have improving hygiene and grooming. Behavior: Patient is seated without any agitated behavior. More directable today. Speech: Patient's speech is fluent and nonpressured. [place], improving mildly Mood/Affect: Patient reports their mood is "fine", affect is congruent and constricted. Suicidality/Homicidality: Patient denies having any homicidal ideation intent or plan. Denies any suicidal ideations intent or plan Perceptions: Patient denies any visual hallucinations and denies any auditory hallucinations Though content/process: [place], poverty of content, improving mildly. Not endorsing any delusions. Memory and concentration: AOX3, grossly intact for the purposes of this session. Judgment and insight: improving mildly Assessment Schizoaffective disorder unspecified Cocaine abuse Nicotine dependence Plan: -Patient continues to meet criteria for inpatient psychiatric admission for symptom stabilization and safety. Patient has not signed adult voluntary form and and was placed in patient's chart. -Medications: Decreased lithium 600 mg daily at bedtime for mood stabilization. Discontinued Haldol by mouth. Patient received Haldol D injection today 75 mg and will be due for next dose on 03/22 and every 2 weeks thereafter. Continue with Effexor 75 mg daily for mood/anxiety. -check BMP -When necessary Ativan and Haldol for agitation/aggression. -NRT - nicotine patch -SW on board for discharge planning. Encouraged the patient to participate in milieu. Currently awaiting deferral with technical artist and court date, likely discharge after patient meets with technical artist for deferral.
[2021-03-09 11:38] LABS: African American GFR (CKD) >90 (>60 ml/min/1.73 sqM); Anion Gap 9 mmol/L; Blood Urea Nitrogen 6 mg/dL (7-17); Calcium 10.1 mg/dL (8.4-10.2); Carbon Dioxide 23 mmol/L (22-30); Chloride 108 mmol/L (98-107); Glucose 104 mg/dL (74-99); Non-African American GFR(CKD) >90 (>60 ml/min/1.73 sqM); Potassium 4.3 mmol/L (3.5-5.1); Sodium 140 mmol/L (137-145)
[2021-03-09 14:05] VITALS: BP 135/77; PULSE 100
[2021-03-09] MEDS: ATORVASTATIN 10 MG TAB PO SCH (20:34)
[2021-03-09] MEDS: VENLAFAXINE HCL ER 75 MG CAP PO SCH (20:34)
[2021-03-09] MEDS ORDERED: LITHIUM CARBONATE 300 MG CAP PO SCH (21:00)
[2021-03-10] MEDS: SYMBICORT 160-4.5 MCG INHALER INHALATION SCH (08:16)
[2021-03-10] MEDS: DOCUSATE 100 MG CAP PO SCH (08:16)
[2021-03-10] MEDS: NICOTINE 14MG/24HR PATCH TRANSDERM SCH (08:17)
[2021-03-10] MEDS: THYROID, PORK 30 MG TAB PO SCH (08:17)
[2021-03-10] MEDS: LORazepam 1 MG TAB PO PRN (08:17)
--- NOTE | 2021-03-10 09:27 | P.DS ---
Providers Date of admission: 03/04/21 23:13 Expected date of discharge: 03/10/21 Attending physician: Kendall Mcintyre MD Consults: 03/04/21 23:18 Consult Physician Routine Consulting Provider: Lian Oakley Consult Reason/Comments: history and physical/medical management Do you want consulting provider notified?: Yes Primary care physician: Stated None - Discharge Diagnosis(es) (1) Schizoaffective disorder Current Visit: Yes Status: Acute Priority: High (2) Cocaine abuse Current Visit: Yes Status: Acute Priority: Medium (3) Nicotine dependence Current Visit: Yes Status: Acute Priority: Low Hospital Course: Admission HPI: Admission note was completed by life insurance underwriter "Patient is a 35-year-old female who currently lives with her mother and daughter in a house is single and unmarried and is currently unemployed. Patient presented to the hospital yesterday on a pickup order for psychiatric evaluation. Patient has claimed in the ER that she has been taking her medications and was denying any symptoms. Petition was filled out by [facility] case briefer who stated that patient was recently discharged from a psychiatric hospital on 02/19/21 and has been missing her appointments and not having her discharge medications. Petition also claims that she has been "guarded suspicious and paranoid". Patient also claimed that patient had "bought a plane ticket to [place] with no travel plans, she has been staying up multiple days in a row" and apparently has been leaving the house for several hours and was claiming that she is trying to get to [place] and that a man was going to pick her up. Patient was seen today for psychiatric evaluation. She was fairly concrete and had significant thought blocking. She was fairly concrete and had a constricted affect. She did attempt to engage with life insurance underwriter in conversation and claims that she does not use drugs and has not been taking her medications. She appeared to have very poor insight and judgment into her condition. She was very slow to respond to questions. She was playing with her clothes and appeared to be distracted during the interview. She claims that she is "not sure why I am here". She was a very poor historian. She denied any stressors or problems at home. She claims that her sleep has been fair and her appetite has been fair. Patient denies any suicidal or homicidal ideations intent or plan. At this time patient denies any auditory or visual hallucinations. Patient's UDS was positive for amphetamines and cocaine however she only claims that she uses cigarettes daily." Hospital course: Upon admission to the unit patient was initially bizarre and constricted/flat. Patient was however admitted on a petition and certificate and 8 seconds clinical certificate was completed and faxed to the courts. Patient ended up signing a deferral with her staff attorney and was agreeable to treatment. Patient got along well with other patients on the unit and followed unit protocol. Patient was compliant with the medications and denied any side effects throughout hospital course. Patient was started on Effexor 75 mg daily for mood/anxiety. Patient was also restarted on her home dose of lithium however due to increased thirst, lithium was decreased down to 600 mg daily at bedtime for mood stabilization. Patient was also titrated off of her Haldol by mouth and transition back onto Haldol D and was given her dose of 75 mg IM on 03/08/21 and will be due every 2 weeks with the next dose on 03/22/21. Patient spoke of her stressors and engaged in therapy both group and individual. Patient was also seen by medical team for history and physical exam. Throughout the course of e hospitalization patient gradually improved with regards to her psychosis and mood, sleep and became more future oriented with improved insight and judgment. On the day of discharge patient denied any suicidal or homicidal ideations intent or plan denied any auditory or visual hallucinations. Patient endorsed wanting to live for her daughter and her health. The patient denied any access to guns or weapons. Patient denied any paranoia and did not endorse any delusions. Patient does have a significant history of substance abuse and was counseled on abstaining from all substances including alcohol and marijuana. Patient was offered however declined inpatient substance-abuse rehab. Patient elected to do outpatient substance use treatment program through [facility]. Patient was also counseled on the medications and need for regular compliance and was encouraged to follow-up with their outpatient appointment for mental health and also for primary care. Prior to discharge a family meeting will be arranged by social media community manager to answer any questions and ensure safety upon discharge. Mental status exam: General Appearance: Patient appears to be stated age is alert, pleasant, and cooperative. Patient is in no acute distress and has improved hygiene and grooming Behavior: Patient is calmly seated without any agitated behavior. Speech: Patient's speech is fluent and nonpressured. Mood/Affect: Patient reports their mood is "better", affect is congruent Suicidality/Homicidality: Patient denies having any suicidal or homicidal ideation intent or plan. Perceptions: Patient denies any auditory or visual hallucinations. Though content/process: There is no evidence of any delusional thought content and thought process is linear and goal-directed. Memory and concentration: AOX3, grossly intact for the purposes of this session. Can spell "WORLD" backwards correctly. Judgment and insight: chronically poor, however has improved with guarded prognosis Impression: Schizoaffective disorder unspecified Cocaine abuse Nicotine dependence Plan: -Continue with discharge today as patient has improved and stabilized psychiatrically and is not currently an imminent threat to herself and/or others. Patient will remain at chronically elevated risk for harm to self and/or others due to her impulsivity and substance abuse. -Continue medications: Haldol D and was given her dose of 75 mg IM on 03/08/21 and will be due every 2 weeks with the next dose on 03/22/21. Effexor 75 mg daily for mood/anxiety, lithium 600 mg daily at bedtime for mood stabilization. -Patient was counseled on the need for medication compliance and appropriate follow-up at mental health and also primary care for medical issues. Patient verbalized understanding and agreed. -Social work to arrange for and conduct family meeting to ensure safety upon discharge and answer any questions/concerns. Social work also to arrange for patients follow up appointments with [facility] and [facility] for psychiatric care along with follow up with primary care provider. -Patient counseled on abstaining from recreational drugs and marijuana and alcohol. Was informed/educated on the adverse effects on their physical and mental health. Patient verbally agreed and understood. Patient was offered substance abuse treatment however declined at this time. -Patient was instructed to return to the hospital or seek immediate medical care if their psychiatric or medical symptoms do worsen or reoccur. Allergies Allergy/AdvReac Type Severity Reaction Status Date / Time No Known Allergies Allergy Verified 03/05/21 01:42 Laboratory Results WBC 6.4 k/uL (3.8-10.6) 03/05/21 09:51 RBC 4.43 m/uL (3.80-5.40) 03/05/21 09:51 Hgb 14.3 gm/dL (11.4-16.0) 03/05/21 09:51 Hct 40.9 % (34.0-46.0) 03/05/21 09:51 MCV 92.3 fL (80.0-100.0) 03/05/21 09:51 MCH 32.2 pg (25.0-35.0) 03/05/21 09:51 MCHC 34.9 g/dL (31.0-37.0) 03/05/21 09:51 RDW 12.9 % (11.5-15.5) 03/05/21 09:51 Plt Count 225 k/uL (150-450) 03/05/21 09:51 MPV 9.8 03/05/21 09:51 Neutrophils % 79 % 03/05/21 09:51 Lymphocytes % 14 % 03/05/21 09:51 Monocytes % 5 % 03/05/21 09:51 Eosinophils % 1 % 03/05/21 09:51 Basophils % 1 % 03/05/21 09:51 Neutrophils # 5.0 k/uL (1.3-7.7) 03/05/21 09:51 Lymphocytes # 0.9 k/uL (1.0-4.8) L 03/05/21 09:51 Monocytes # 0.3 k/uL (0-1.0) 03/05/21 09:51 Eosinophils # 0.1 k/uL (0-0.7) 03/05/21 09:51 Basophils # 0.0 k/uL (0-0.2) 03/05/21 09:51 Sodium 140 mmol/L (137-145) 03/09/21 10:48 Potassium 4.3 mmol/L (3.5-5.1) 03/09/21 10:48 Chloride 108 mmol/L (98-107) H 03/09/21 10:48 Carbon Dioxide 23 mmol/L (22-30) 03/09/21 10:48 Anion Gap 9 mmol/L 03/09/21 10:48 BUN 6 mg/dL (7-17) L 03/09/21 10:48 Creatinine 0.81 mg/dL (0.52-1.04) 03/09/21 10:48 Est GFR (CKD-EPI)AfAm >90 (>60 ml/min/1.73 sqM) 03/09/21 10:48 Est GFR (CKD-EPI)NonAf >90 (>60 ml/min/1.73 sqM) 03/09/21 10:48 Glucose 104 mg/dL (74-99) H 03/09/21 10:[address] Glu mg/dL 100 03/05/21 09:51 Hemoglobin A1c 5.1 % (4.0-6.0) 03/05/21 09:51 Calcium 10.1 mg/dL (8.4-10.2) 03/09/21 10:48 Total Bilirubin 0.5 mg/dL (0.2-1.3) 03/05/21 09:51 AST 39 U/L (14-36) H 03/05/21 09:51 ALT 32 U/L (4-34) 03/05/21 09:51 Alkaline Phosphatase 90 U/L (38-126) 03/05/21 09:51 Total Protein 6.7 g/dL (6.3-8.2) 03/05/21 09:51 Albumin 4.4 g/dL (3.5-5.0) 03/05/21 09:51 Triglycerides 138.0 mg/dL (0.0-149.0) 03/05/21 09:51 Cholesterol 140 mg/dL (0-200) 03/05/21 09:51 LDL Cholesterol, Calc 69.4 mg/dL (0.0-131.0) 03/05/21 09:51 VLDL Cholesterol, Calc 27.60 mg/dL (5.00-40.00) 03/05/21 09:51 HDL Cholesterol 43.0 mg/dL (40.0-60.0) 03/05/21 09:51 Cholesterol/HDL Ratio 3.26 03/05/21 09:51 TSH 0.634 mIU/L (0.465-4.680) 03/05/21 09:51 Urine Opiates Screen Not Detected (NotDetected) 03/04/21 16:05 Ur Oxycodone Screen Not Detected (NotDetected) 03/04/21 16:05 Urine Methadone Screen Not Detected (NotDetected) 03/04/21 16:05 Ur Propoxyphene Screen Not Detected (NotDetected) 03/04/21 16:05 Ur Barbiturates Screen Not Detected (NotDetected) 03/04/21 16:05 U Tricyclic Antidepress Not Detected (NotDetected) 03/04/21 16:05 Ur Phencyclidine Scrn Not Detected (NotDetected) 03/04/21 16:05 Ur Amphetamines Screen Detected (NotDetected) H 03/04/21 16:05 U Methamphetamines Scrn Not Detected (NotDetected) 03/04/21 16:05 U Benzodiazepines Scrn Detected (NotDetected) H 03/04/21 16:05 [place]ave 0.8 mmol/L 03/08/21 09:52 Urine Cocaine Screen Not Detected (NotDetected) 03/04/21 16:05 U Marijuana (THC) Screen Not Detected (NotDetected) 03/04/21 16:05 Coronavirus (PCR) Not Detected (Not Detectd) 03/04/21 19:25 Vital Signs Temp 97.6 F 03/09/21 06:39 Pulse 100 03/09/21 14:04 Resp 16 03/09/21 06:39 BP 135/77 03/09/21 14:04 Pulse Ox 100 03/04/21 23:13 Patient Condition at Discharge: Stable Plan - Discharge Summary Discharge Rx Participant: No New Discharge Prescriptions: New Venlafaxine HCl ER [Effexor XR] 75 mg PO HS 30 Days cap.er.24h Nicotine 14Mg/24Hr Patch [Habitrol] 1 patch TRANSDERM DAILY 14 Days patch [place] Carbonate 600 mg PO HS 30 Days cap Docusate [Colace] 100 mg PO DAILY 30 Days cap Haloperidol Decanoate [Haldol D] 75 mg IM [id number] #1 vial Continue Atorvastatin [Lipitor] 10 mg PO DAILY Budesonide/Formoterol Fumarate [Symbicort 160-4.5 Mcg Inhaler] 2 puff INHALATION RT-BID #1 inhaler Thyroid, Pork [[place] Thyroid] 30 mg PO DAILY Albuterol Sulfate [Proair Hfa] 2 puff INHALATION RT-QID PRN PRN Reason: Shortness Of Breath Discontinued Gabapentin [Neurontin] 100 mg PO BID Venlafaxine HCl [Effexor XR] 150 mg PO HS Dextroamphetamine/Amphetamine [Adderall] 30 mg PO BID Brexpiprazole [Rexulti] 4 mg PO HS Buprenorphine HCl/Naloxone HCl [Buprenorphin-Naloxon 8-2 mg Sl] 1 film SL TID PRN PRN Reason: Pain LORazepam [Ativan] 1 mg PO BID PRN PRN Reason: Anxiety Cariprazine HCl [Vraylar] See Taper PO DIRECTED Docusate [Colace] 100 mg PO DAILY Discharge Medication List Atorvastatin [Lipitor] 10 mg PO DAILY 12/21/20 [History] Albuterol Sulfate [Proair Hfa] 2 puff INHALATION RT-QID PRN 03/04/21 [History] Thyroid, Pork [[place] Thyroid] 30 mg PO DAILY 03/04/21 [History] Budesonide/Formoterol Fumarate [Symbicort 160-4.5 Mcg Inhaler] 2 puff INHALATION RT-BID #1 inhaler 03/10/21 [Rx] Docusate [Colace] 100 mg PO DAILY 30 Days cap 03/10/21 [Rx] Haloperidol Decanoate [Haldol D] 75 mg IM [id number] #1 vial 03/10/21 [Rx] [place] Carbonate 600 mg PO HS 30 Days cap 03/10/21 [Rx] Nicotine 14Mg/24Hr Patch [Habitrol] 1 patch TRANSDERM DAILY 14 Days patch 03/10/21 [Rx] Venlafaxine HCl ER [Effexor XR] 75 mg PO HS 30 Days cap.er.24h 03/10/21 [Rx] Follow up Appointment(s)/Referral(s): [facility] [Outside] - 03/12/21 10:00 am (03-12-21 @ 10:00 with Ximena Venegas at [facility] office 03-17-21 @ 10:[address] Juarez at [facility] office) None,Stated [Primary Care Provider] - 1-2 days Discharge Disposition: HOME SELF-CARE
== END 2021-03-10 13:30 | disposition home or self-care (01) | DRG 885 ==
LOC: EC 14:38 → 3MHU 23:13
PROVIDERS: ADMIT Psychiatry & Neurology Psychiatry; ATTEND Psychiatry & Neurology Psychiatry
DX: F25.9 Schizoaffective disorder, unspecified (principal); F14.10 Cocaine abuse, uncomplicated; F17.200 Nicotine dependence, unspecified, uncomplicated; F41.0 Panic disorder [episodic paroxysmal anxiety]; J45.20 Mild intermittent asthma, uncomplicated; E11.9 Type 2 diabetes mellitus without complications; E03.9 Hypothyroidism, unspecified; E78.5 Hyperlipidemia, unspecified; T43.595A Adverse effect of other antipsychotics and neuroleptics, initial encounter; Z79.51 Long term (current) use of inhaled steroids; Z79.899 Other long term (current) drug therapy; Z81.8 Family history of other mental and behavioral disorders; Z20.822 Contact with and (suspected) exposure to COVID-19
CPT/HCPCS: 80048; 80053; 80061; 80178; 80306; 82075; 83036; 84443; 85025; 87635; 99285

== ENCOUNTER 2022-12-23 22:11 | Emergency (ER) | payer SELFPAY ==
[2022-12-23] MEDS ORDERED: DEXAMETHASONE SOD PHOSPHATE 10 MG/ML 1 ML VIAL IM STA (22:33)
[2022-12-23] MEDS ORDERED: KETOROLAC 15 MG/ML 1 ML VIAL IM STA (22:33)
[2022-12-23] MEDS ORDERED: ORPHENADRINE 30 MG/ML 2 ML VIAL IM STA (22:33)
[2022-12-23 22:49] LABS: Appearance,Urine Clear (Clear); Bilirubin,Urine Negative (Negative); Blood,Urine Negative (Negative); Color,Urine Colorless; Glucose,Urine (UA) Negative (Negative); Ketones,Urine Negative (Negative); Leukocyte Esterase,Urine Negative (Negative); Nitrite,Urine Negative (Negative); Protein,Urine Negative (Negative); Specific Gravity,Urine 1.001 (1.001-1.035); Urobilinogen,Urine <2.0 mg/dL (<2.0)
--- NOTE | 2022-12-23 22:51 | XR ---
EXAMINATION TYPE: XR chest 2V DATE OF EXAM: 12/23/2022 COMPARISON: 04/18/2020 HISTORY: Chest pain TECHNIQUE: Frontal and lateral views of the chest are obtained. FINDINGS: There is no focal air space opacity. No evidence for pneumothorax. No pleural effusion. The cardiac silhouette size is within normal limits. The osseous structures are grossly intact. IMPRESSION: 1. No acute cardiopulmonary process.
[2022-12-23 23:04] VITALS: BP 118/84; PULSE 87; RESP 16; TEMP 97.9
--- NOTE | 2022-12-23 23:27 | ED ---
General Adult HPI - General Chief complaint: Abdominal Pain Stated complaint: Rib Pain - left side Time Seen by Provider: 12/23/22 22:20 Source: EMS Mode of arrival: EMS Limitations: no limitations - History of Present Illness Initial comments: Patient is a 37-year-old female presenting with chief complaint of left-sided rib pain. Patient states that the pain started around 1:00 this afternoon. It is a sharp pain, worse with movement. She states that she can feel a wrapping around from her back to the front of her chest. She admits to some generalized soreness. She also admits to constipation, patient is currently on methadone. No shortness of breath, palpitations, weakness, numbness, tingling, abdominal pain, nausea, vomiting, fever, chills, diarrhea, hematochezia, melena, cough, congestion, sore throat. - Related Data Home Medications Medication Instructions Recorded Confirmed Atorvastatin [Lipitor] 10 mg PO DAILY 12/21/20 03/05/21 Albuterol Sulfate [Proair Hfa] 2 puff INHALATION RT-QID PRN 03/04/21 03/05/21 Thyroid, Pork [[place] Thyroid] 30 mg PO DAILY 03/04/21 03/05/21 Previous Rx's Medication Instructions Recorded Budesonide/Formoterol Fumarate 2 puff INHALATION RT-BID #1 inhaler 03/10/21 [Symbicort 160-4.5 Mcg Inhaler] Docusate [Colace] 100 mg PO DAILY 30 Days cap 03/10/21 Haloperidol Decanoate [Haldol D] 75 mg IM [id number] #1 vial 03/10/21 [place] Carbonate 600 mg PO HS 30 Days cap 03/10/21 Nicotine 14Mg/24Hr Patch [Habitrol] 1 patch TRANSDERM DAILY 14 Days 03/10/21 patch Venlafaxine HCl ER [Effexor XR] 75 mg PO HS 30 Days cap.er.24h 03/10/21 Lidocaine 5% Patch [Lidoderm] 1 patch TOPICAL DAILY PRN #1 pack 12/23/22 methylPREDNISolone Dose Pack 4 mg PO DIRECTED #1 packet 12/23/22 [Medrol Dose Pack] Allergies Allergy/AdvReac Type Severity Reaction Status Date / Time No Known Allergies Allergy Verified 03/05/21 01:42 Review of Systems ROS Statement: Those systems with pertinent positive or pertinent negative responses have been documented in the HPI. ROS Other: All systems not noted in ROS Statement are negative. Past Medical History Past Medical History: Diabetes Mellitus Additional Past Medical History / Comment(s): endometriosis, STATES SHE HAS PROBLEMS WITH HER BALANCE, RECTAL BLEEDING , ANEMIA History of Any Multi-Drug Resistant Organisms: None Reported Additional Past Surgical History / Comment(s): EXPLORATORY LAPAROSCOPIC SURGERY Past Anesthesia/Blood Transfusion Reactions: No Reported Reaction Past Psychological History: ADD/ADHD, Anxiety, Depression, Panic Disorder, Schizoaffective Disorder Smoking Status: Current every day smoker Past Alcohol Use History: None Reported Past Drug Use History: None Reported - Past Family History Mother Family Medical History: Deep Vein Thrombosis (DVT), Pulmonary Embolus General Exam Limitations: no limitations General appearance: alert, in no apparent distress Head exam: Present: atraumatic, normocephalic, normal inspection Eye exam: Present: normal appearance, EOMI. Absent: periorbital swelling, periorbital tenderness Neck exam: Present: normal inspection, full ROM Respiratory exam: Present: normal lung sounds bilaterally, chest wall tenderness. Absent: respiratory distress, wheezes, rales, rhonchi, stridor Cardiovascular Exam: Present: regular rate, normal rhythm, normal heart sounds. Absent: systolic murmur, diastolic murmur, rubs, gallop, clicks GI/Abdominal exam: Present: soft. Absent: distended, tenderness, guarding, rebound, rigid Neurological exam: Present: alert, oriented X3, CN II-XII intact Psychiatric exam: Present: normal affect, normal mood Skin exam: Present: warm, dry, intact, normal color. Absent: rash Course Vital Signs 12/23/22 23:04 Temperature 97.9 F Pulse Rate 87 Respiratory 16 Rate Blood Pressure 118/84 O2 Sat by Pulse 100 Oximetry Medical Decision Making - Medical Decision Making Was pt. sent in by a medical professional or institution (, PA, SOFTWARE DEVELOPMENT COORDINATOR, urgent care, hospital, or alf...) When possible be specific @ -No Did you speak to anyone other than the patient for history (EMS, parent, family, police, friend...)? What history was obtained from this source @ -No Did you review nursing and triage notes (agree or disagree)? Why? @ -I reviewed and agree with nursing and triage notes Were old charts reviewed (outside hosp., previous admission, EMS record, old EKG, old radiological studies, urgent care reports/EKG's, alf records)? Report findings @ -No old charts were reviewed Differential Diagnosis (chest pain, altered mental status, abdominal pain women, abdominal pain men, vaginal bleeding, weakness, fever, dyspnea, syncope, headache, dizziness, GI bleed, back pain, seizure, CVA, palpatations, mental health, musculoskeletal)? @ -[facility] Differential Chest Pain: Stable Angina, Unstable Angina, STEMI, NSTEMI Aortic Dissection, Pneumothorax, Musculoskeletal, Esophageal Spasm GERD, Cholecystitis, Pancreatitis, Zoster This is not meant to be an all-inclusive list. EKG interpreted by me (3pts min.). @ -As above X-rays interpreted by me (1pt min.). @ -Chest x-ray shows no acute process CT interpreted by me (1pt min.). @ -None done U/S interpreted by me (1pt. min.). @ -None done What testing was considered but not performed or refused? (CT, X-rays, U/S, labs)? Why? @ -None What meds were considered but not given or refused? Why? @ -None Did you discuss the management of the patient with other professionals (professionals i.e. , PA, SOFTWARE DEVELOPMENT COORDINATOR, lab, RT, psych nurse, social scientist, slitter scorer, teacher, commissioned defence force officer, comp field case manager)? Give summary @ -No Was smoking cessation discussed for >3mins.? @ -No Was critical care preformed (if so, how long)? @ -No Were there social determinants of health that impacted care today? How? (Homelessness, low income, unemployed, alcoholism, drug addiction, transportation, low edu. Level, literacy, decrease access to med. care, skilled nursing, rehab)? @ -No Was there de-escalation of care discussed even if they declined (Discuss DNR or withdrawal of care, Hospice)? DNR status @ -No What co-morbidities impacted this encounter? (DM, HTN, Smoking, COPD, CAD, Cancer, CVA, ARF, Chemo, Hep., AIDS, mental health diagnosis, sleep apnea, morbid obesity)? @ -None Was patient admitted / discharged? Hospital course, mention meds given and route, prescriptions, significant lab abnormalities, going to OR and other pertinent info. @ -Patient is a 37-year-old female presenting with chief complaint of left- sided rib pain that started this afternoon. On physical examination there is reproducible pain to the left-sided chest wall and back. Heart and lungs are clear to auscultation. Chest x-ray is negative. Urine is negative and hCG is negative. Patient responded well to Toradol, Decadron, Norflex and lidocaine patch. She is educated on supportive treatment at home for inflammatory pain. She is also given magnesium citrate to take home as she is constipated due to her methadone. Follow-up with PCP. Report back to ER with any new or worsening symptoms. Discussed return parameters and answered all questions. Patient conveyed verbal understanding and agreed to the plan. I discussed this case in detail with my attending Dr. Moreno Undiagnosed new problem with uncertain prognosis? @ -No Drug Therapy requiring intensive monitoring for toxicity (Heparin, Nitro, Insulin, Cardizem)? @ -No Were any procedures done? @ -No Diagnosis/symptom? @ -Rib pain Acute, or Chronic, or Acute on Chronic? @ -Acute Uncomplicated (without systemic symptoms) or Complicated (systemic symptoms)? @ -Uncomplicated Side effects of treatment? @ -No Exacerbation, Progression, or Severe Exacerbation? @ -No Poses a threat to life or bodily function? How? (Chest pain, [place], [place], pneumonia, PE, COPD, DKA, ARF, appy, cholecystitis, CVA, Diverticulitis, Homicidal, Suicidal, threat to staff... and all critical care pts) @ -No - Lab Data Lab Results 12/23/22 12/23/22 Range/Units 22:38 22:38 Urine Color Colorless Urine Appearance Clear (Clear) Urine pH 7.0 (5.0-8.0) Ur Specific [place] 1.001 (1.001-1.035) Urine Protein Negative (Negative) Urine Glucose (UA) Negative (Negative) Urine Ketones Negative (Negative) Urine Blood Negative (Negative) Urine Nitrite Negative (Negative) Urine Bilirubin Negative (Negative) Urine Urobilinogen <2.0 (<2.0) mg/dL Ur Leukocyte Esterase Negative (Negative) Urine HCG, Qual Not Detected (Not Detectd) Disposition Clinical Impression: Rib pain Disposition: HOME SELF-CARE Condition: Good Instructions (If sedation given, give patient instructions): Costochondritis (ED) Additional Instructions: Follow-up with PCP. Report back to ER with any new or worsening symptoms. Take Motrin and Tylenol as needed for pain control. Take medication as prescribed. Prescriptions: Lidocaine 5% Patch [Lidoderm] 1 patch TOPICAL DAILY PRN #1 pack PRN Reason: Pain methylPREDNISolone Dose Pack [Medrol Dose Pack] 4 mg PO DIRECTED #1 packet Is patient prescribed a controlled substance at d/c from ED?: No Referrals: Nonstaff,Physician [Primary Care Provider] - 1-2 days Time of Disposition: 23:27
[2022-12-23] MEDS ORDERED: LIDOCAINE 5% PATCH TOPICAL STA (23:29)
[2022-12-23] MEDS ORDERED: MAGNESIUM CITRATE 296 ML BOTTLE PO ONE (23:32)
== END 2022-12-23 23:51 | disposition home or self-care (01) ==
LOC: EC 22:11
DX: R07.81 Pleurodynia (principal); E11.9 Type 2 diabetes mellitus without complications; F90.9 Attention-deficit hyperactivity disorder, unspecified type; F41.9 Anxiety disorder, unspecified; F32.A Depression, unspecified; F17.200 Nicotine dependence, unspecified, uncomplicated
CPT/HCPCS: 81003; 81025; 71046; 99285; 96372 ×3; J1100; J2360; J1885

== ENCOUNTER 2023-01-12 16:39 | Emergency (ER) | payer OTHER ==
--- NOTE | 2023-01-12 16:42 | ED ---
Back Pain HPI - General Stated Complaint: Back Pain Time Seen by Provider: 01/12/23 16:42 Source: RN notes reviewed, old records reviewed Limitations: no limitations - History of Present Illness Initial Comments: This is a 37-year-old female DF for evaluation patient Dese for evaluation regards to abdominal pain back pain fever recent diagnosis of urinary tract infection. Patient does have bilateral flank pain bilateral groin pain nausea weakness dysuria MD Complaint: back pain, other (Flank pain and abdominal pain) -: days(s) Similar Symptoms Previously: Yes Place: home Radiation: abdomen, groin Severity: moderate Severity scale (1-10): 5 Quality: burning, dull Consistency: intermittent Worsens With: none Associated Symptoms: fever/chills, abdominal pain Treatments Prior to Arrival: other (0) - Related Data Home Medications Medication Instructions Recorded Confirmed Albuterol Sulfate [Proair Hfa] 2 puff INHALATION RT-QID PRN 03/04/21 01/12/23 Thyroid, Pork [[place] Thyroid] 30 mg PO DAILY 03/04/21 01/12/23 ARIPiprazole [Abilify] 15 mg PO BID 01/12/23 01/12/23 Atorvastatin [Lipitor] 20 mg PO HS 01/12/23 01/12/23 Buprenorphine/Naloxone 8Mg/2Mg 1 film SL BID 01/12/23 01/12/23 [Suboxone 8-2Mg Film] Dextroamphetamine/Amphetamine 20 mg PO BID 01/12/23 01/12/23 [Adderall] Ergocalciferol (Vitamin D2) 1,250 mcg PO CASAS 01/12/23 01/12/23 [Drisdol (50,000 Iu)] Ferrous Sulfate [Feosol] 325 mg PO DAILY 01/12/23 01/12/23 Fluticasone Nasal [place] [Flonase 2 spray EA NOSTRIL DAILY 01/12/23 01/12/23 Nasal [place]] Folic Acid 1 mg PO TUSA 01/12/23 01/12/23 Ibuprofen [Motrin] 600 mg PO Q8HR PRN 01/12/23 01/12/23 Ketoconazole 2% Shampoo [Nizoral] 1 applic TOPICAL Q7D PRN 01/12/23 01/12/23 [place] Carbonate 600 mg PO BID 01/12/23 01/12/23 Semaglutide [Ozempic] 1 mg SQ TU 01/12/23 01/12/23 Triamcinolone 0.1% Lotion [Kenalog 1 applic TOPICAL BID 01/12/23 01/12/23 0.1% Lotion] metHOTREXate sodium [Methotrexate] 10 mg PO CASAS 01/12/23 01/12/23 methocarbamoL [Methocarbamol] 750 mg PO Q4H PRN 01/12/23 01/12/23 Previous Rx's Medication Instructions Recorded Sulfamethox-Tmp 800-160Mg [Bactrim 1 tab PO Q12HR #14 tab 01/12/23 DS 800-160 mg] Allergies Allergy/AdvReac Type Severity Reaction Status Date / Time No Known Allergies Allergy Verified 01/12/23 18:14 Review of Systems ROS Statement: Those systems with pertinent positive or pertinent negative responses have been documented in the HPI. ROS Other: All systems not noted in ROS Statement are negative. Past Medical History Past Medical History: Diabetes Mellitus Additional Past Medical History / Comment(s): endometriosis, STATES SHE HAS PROBLEMS WITH HER BALANCE, RECTAL BLEEDING , ANEMIA History of Any Multi-Drug Resistant Organisms: None Reported Additional Past Surgical History / Comment(s): EXPLORATORY LAPAROSCOPIC SURGERY Past Anesthesia/Blood Transfusion Reactions: No Reported Reaction Past Psychological History: ADD/ADHD, Anxiety, Depression, Panic Disorder, Schizoaffective Disorder Smoking Status: Current every day smoker Past Alcohol Use History: None Reported Past Drug Use History: None Reported - Past Family History Mother Family Medical History: Deep Vein Thrombosis (DVT), Pulmonary Embolus General Exam General appearance: alert, in no apparent distress Head exam: Present: atraumatic, normocephalic, normal inspection Eye exam: Present: normal appearance, PERRL, EOMI. Absent: scleral icterus, conjunctival injection, periorbital swelling ENT exam: Present: normal exam, mucous membranes moist Neck exam: Present: normal inspection. Absent: tenderness, meningismus, lymphadenopathy Respiratory exam: Present: normal lung sounds bilaterally. Absent: respiratory distress, wheezes, rales, rhonchi, stridor Cardiovascular Exam: Present: regular rate, normal rhythm, normal heart sounds. Absent: systolic murmur, diastolic murmur, rubs, gallop, clicks GI/Abdominal exam: Present: soft, normal bowel sounds. Absent: distended, tenderness, guarding, rebound, rigid Extremities exam: Present: normal inspection, full ROM, normal capillary refill. Absent: tenderness, pedal edema, joint swelling, calf tenderness Back exam: Present: normal inspection Neurological exam: Present: alert, oriented X3, CN II-XII intact Psychiatric exam: Present: normal affect, normal mood Skin exam: Present: warm, dry, intact, normal color. Absent: rash Course Vital Signs 01/12/23 16:46 Temperature 97.8 F Pulse Rate 118 H Respiratory 18 Rate Blood Pressure 129/93 O2 Sat by Pulse 100 Oximetry - Reevaluation(s) Reevaluation #1: 01/12/23 18:17 Medical record is reviewed Reevaluation #2: 01/12/23 20:22 Patient symptoms unchanged here in the ER Reevaluation #3: 01/12/23 20:22 Patient informed results and questions answered Reevaluation #4: 01/12/23 20:22 Was pt. sent in by a medical professional or institution? @ -no Did you speak to anyone other than the patient for history? @ -no Did you review nursing and triage notes? @ -agree Were old charts reviewed? @ -no Differential Diagnosis? @ -abdominal pain EKG interpreted by me (3pts min.)? @ -no X-rays interpreted by me (1pt min.)? @ -no CT interpreted by me (1pt min.)? @ -no U/S interpreted by me (1pt. min.)? @ -no What testing was considered but not performed? (CT, X-rays, U/S, labs)? Why? @ -no What meds were considered but not given? Why? @ -no Did you discuss the management of the patient with other professionals? @ -no Did you reconcile home meds? @ -no Was smoking cessation discussed for >3mins.? @ -no Was critical care preformed (if so, how long)? @ -no Were there social determinants of health that impacted care today? How? (Homelessness, low income, unemployed, alcoholism, drug addiction, transportation, low edu. Level, literacy, decrease access to med. care, usp, rehab)? @ -no Was there de-escalation of care discussed even if they declined? (Discuss DNR or withdrawal of care, Hospice)? @ -no What co-morbidities impacted this encounter? (DM, HTN, Smoking, COPD, CAD, Cancer, CVA, Hep., AIDS, mental health diagnosis, sleep apnea, morbid obesity)? @ -no Was patient admitted / discharged? @ -dc Undiagnosed new problem with uncertain prognosis? @ -no Drug Therapy requiring intensive monitoring for toxicity (Heparin, Nitro, Insulin, Cardizem)? @ -no Were any procedures done? @ -no Diagnosis/symptom? @ -UTI Acute, or Chronic, or Acute on Chronic? @ -acute Uncomplicated (without systemic symptoms) or Complicated (systemic symptoms)? @ -uncomplicated Side effects of treatment? @ -no Exacerbation, Progression, or Severe Exacerbation] @ -no Poses a threat to life or bodily function? @ -no Reevaluation #5: 01/12/23 20:22 Differential Abdominal Pain Women: Appendicitis, Cholecystitis, diverticulosis, ischemic bowel, pancreatitis, hepatitis, UTI, gastroenteritis, AAA, incarcerated hernia, bowel obstruction, constipation, inflammatory bowel, hepatitis, peptic ulcer disease, splenic infarction, perforated viscus, vulvitis, ovarian torsion, PID, kidney stone, placenta abruption, this is not meant to be an all-inclusive list Medical Decision Making - Medical Decision Making 37 female to the emergency department for evaluation patient presents today for evaluation regards to the area urinary frequency history of cystitis, patient be treated with antibiotics awaiting cultures - Lab Data Result diagrams: 01/12/23 18:14 01/12/23 18:14 Lab Results 01/12/23 01/12/23 01/12/23 Range/Units 18:14 18:14 18:14 WBC 7.0 (3.8-10.6) k/uL RBC 5.00 (3.80-5.40) m/uL Hgb 14.6 (11.4-16.0) gm/dL Hct 44.2 (34.0-46.0) % MCV 88.5 (80.0-100.0) fL MCH 29.3 (25.0-35.0) pg MCHC 33.1 (31.0-37.0) g/dL RDW 12.9 (11.5-15.5) % Plt Count 291 (150-450) k/uL MPV 9.4 Neutrophils % 62 % Lymphocytes % 31 % Monocytes % 4 % Eosinophils % 2 % Basophils % 0 % Neutrophils # 4.4 (1.3-7.7) k/uL Lymphocytes # 2.2 (1.0-4.8) k/uL Monocytes # 0.3 (0-1.0) k/uL Eosinophils # 0.1 (0-0.7) k/uL Basophils # 0.0 (0-0.2) k/uL Sodium 140 (137-145) mmol/L Potassium 4.1 (3.5-5.1) mmol/L Chloride 103 (98-107) mmol/L Carbon Dioxide 29 (22-30) mmol/L Anion Gap 8 mmol/L BUN 4 L (7-17) mg/dL Creatinine 0.78 (0.52-1.04) mg/dL Est GFR (CKD-EPI)AfAm >90 (>60 ml/min/1.73 sqM) Est GFR (CKD-EPI)NonAf >90 (>60 ml/min/1.73 sqM) Glucose 55 L (74-99) mg/dL Plasma Lactic Acid Gilbert (0.7-2.0) mmol/L Calcium 10.4 H (8.4-10.2) mg/dL Phosphorus 4.7 H (2.5-4.5) mg/dL Magnesium 2.0 (1.6-2.3) mg/dL Total Bilirubin 0.3 (0.2-1.3) mg/dL AST 19 (14-36) U/L ALT 18 (4-34) U/L Alkaline Phosphatase 44 (38-126) U/L Total Protein 8.0 (6.3-8.2) g/dL Albumin 4.8 (3.5-5.0) g/dL Amylase 40 (30-110) U/L Lipase 63 (23-300) U/L Urine Color Light Yellow Urine Appearance Cloudy H (Clear) Urine pH 6.5 (5.0-8.0) Ur Specific [place] 1.006 (1.001-1.035) Urine Protein Negative (Negative) Urine Glucose (UA) Negative (Negative) Urine Ketones Negative (Negative) Urine Blood Negative (Negative) Urine Nitrite Negative (Negative) Urine Bilirubin Negative (Negative) Urine Urobilinogen <2.0 (<2.0) mg/dL Ur Leukocyte Esterase Trace H (Negative) Urine RBC <1 (0-5) /hpf Urine WBC 2 (0-5) /hpf Ur Squamous Epith Cells 5 H (0-4) /hpf Urine HCG, Qual (Not Detectd) 01/12/23 01/12/23 Range/Units 18:14 20:05 WBC (3.8-10.6) k/uL RBC (3.80-5.40) m/uL Hgb (11.4-16.0) gm/dL Hct (34.0-46.0) % MCV (80.0-100.0) fL MCH (25.0-35.0) pg MCHC (31.0-37.0) g/dL RDW (11.5-15.5) % Plt Count (150-450) k/uL MPV Neutrophils % % Lymphocytes % % Monocytes % % Eosinophils % % Basophils % % Neutrophils # (1.3-7.7) k/uL Lymphocytes # (1.0-4.8) k/uL Monocytes # (0-1.0) k/uL Eosinophils # (0-0.7) k/uL Basophils # (0-0.2) k/uL Sodium (137-145) mmol/L Potassium (3.5-5.1) mmol/L Chloride (98-107) mmol/L Carbon Dioxide (22-30) mmol/L Anion Gap mmol/L BUN (7-17) mg/dL Creatinine (0.52-1.04) mg/dL Est GFR (CKD-EPI)AfAm (>60 ml/min/1.73 sqM) Est GFR (CKD-EPI)NonAf (>60 ml/min/1.73 sqM) Glucose (74-99) mg/dL Plasma Lactic Acid Gilbert 1.2 (0.7-2.0) mmol/L Calcium (8.4-10.2) mg/dL Phosphorus (2.5-4.5) mg/dL Magnesium (1.6-2.3) mg/dL Total Bilirubin (0.2-1.3) mg/dL AST (14-36) U/L ALT (4-34) U/L Alkaline Phosphatase (38-126) U/L Total Protein (6.3-8.2) g/dL Albumin (3.5-5.0) g/dL Amylase (30-110) U/L Lipase (23-300) U/L Urine Color Urine Appearance (Clear) Urine pH (5.0-8.0) Ur Specific [place] (1.001-1.035) Urine Protein (Negative) Urine Glucose (UA) (Negative) Urine Ketones (Negative) Urine Blood (Negative) Urine Nitrite (Negative) Urine Bilirubin (Negative) Urine Urobilinogen (<2.0) mg/dL Ur Leukocyte Esterase (Negative) Urine RBC (0-5) /hpf Urine WBC (0-5) /hpf Ur Squamous Epith Cells (0-4) /hpf Urine HCG, Qual Not Detected (Not Detectd) - Radiology Data Radiology results: report reviewed (CT head and pelvis negative for acute disease), image reviewed Disposition Clinical Impression: Urinary tract infection Disposition: HOME SELF-CARE Condition: Good Instructions (If sedation given, give patient instructions): Urinary Tract Infection in Women (ED) Prescriptions: Sulfamethox-Tmp 800-160Mg [Bactrim DS 800-160 mg] 1 tab PO Q12HR #14 tab Is patient prescribed a controlled substance at d/c from ED?: No Referrals: None,Stated [Primary Care Provider] - 1-2 days Time of Disposition: 20:20
[2023-01-12 16:50] VITALS: TEMP 97.8
[2023-01-12] MEDS ORDERED: SODIUM CHLORIDE 0.9% 1,000 ML IV STA (17:03)
[2023-01-12 19:01] LABS: Basophils % (A) 0 %; Eosinophils # (A) 0.1 k/uL (0-0.7); Eosinophils % (A) 2 %; HCT 44.2 % (34.0-46.0); HGB 14.6 gm/dL (11.4-16.0); Lymphocytes # (A) 2.2 k/uL (1.0-4.8); Lymphocytes % (A) 31 %; MCH 29.3 pg (25.0-35.0); MCHC 33.1 g/dL (31.0-37.0); MCV 88.5 fL (80.0-100.0); Mean Platelet Volume 9.4; Monocytes # (A) 0.3 k/uL (0-1.0); Monocytes % (A) 4 %; Neutrophils # (A) 4.4 k/uL (1.3-7.7); Neutrophils % (A) 62 %; Platelet Count 291 k/uL (150-450); RDW 12.9 % (11.5-15.5)
[2023-01-12 19:13] LABS: ALT 18 U/L (4-34); AST 19 U/L (14-36); African American GFR (CKD) >90 (>60 ml/min/1.73 sqM); Albumin 4.8 g/dL (3.5-5.0); Alkaline Phosphatase 44 U/L (38-126); Amylase 40 U/L (30-110); Anion Gap 8 mmol/L; Blood Urea Nitrogen 4 mg/dL (7-17); Calcium 10.4 mg/dL (8.4-10.2); Carbon Dioxide 29 mmol/L (22-30); Chloride 103 mmol/L (98-107); Glucose 55 mg/dL (74-99); Lipase 63 U/L (23-300); Non-African American GFR(CKD) >90 (>60 ml/min/1.73 sqM); Phosphorus 4.7 mg/dL (2.5-4.5); Potassium 4.1 mmol/L (3.5-5.1); Sodium 140 mmol/L (137-145); Total Bilirubin 0.3 mg/dL (0.2-1.3)
[2023-01-12 19:22] LABS: Appearance,Urine Cloudy (Clear); Bilirubin,Urine Negative (Negative); Blood,Urine Negative (Negative); Color,Urine Light Yellow; Glucose,Urine (UA) Negative (Negative); Ketones,Urine Negative (Negative); Leukocyte Esterase,Urine Trace (Negative); Nitrite,Urine Negative (Negative); PH, Urine 6.5 (5.0-8.0); Protein,Urine Negative (Negative); RBC,Urine <1 /hpf (0-5); Specific Gravity,Urine 1.006 (1.001-1.035); Squamous Epithelial Cell,Urine 5 /hpf (0-4); Urobilinogen,Urine <2.0 mg/dL (<2.0); WBC,Urine 2 /hpf (0-5)
--- NOTE | 2023-01-12 19:33 | CT ---
EXAMINATION TYPE: CT abdomen pelvis wo con DATE OF EXAM: 01/12/2023 HISTORY: flank pain CT DLP: 607.4 mGycm. Automated Exposure Control for Dose Reduction was Utilized. TECHNIQUE: CT scan of the abdomen and pelvis is performed without oral or IV contrast. COMPARISON: 08/26/2019 FINDINGS: Within the limitations of a non-contrast study, the following observations are made. LUNG BASES: No significant abnormality is appreciated. LIVER/GB: No significant abnormality is appreciated. PANCREAS: No significant abnormality is seen. SPLEEN: No significant abnormality is seen. ADRENALS: No significant abnormality is seen. KIDNEYS: There is no hydronephrosis or hydroureter. No renal or ureteral calcifications. BOWEL: No significant abnormality is seen. PELVIC VISCERA: Urinary bladder is unremarkable. LYMPH NODES: No greater than 1cm abdominal or pelvic lymph nodes are appreciated. OSSEOUS STRUCTURES: No significant abnormality is seen. IMPRESSION: No acute process.
[2023-01-12] MEDS ORDERED: cefTRIAXone 250 MG VIAL IM STA (20:19)
[2023-01-12] MEDS ORDERED: AZITHROMYCIN 500 MG TAB PO STA (20:19)
[2023-01-12] MEDS ORDERED: metroNIDAZOLE 500 MG TAB PO STA (20:19)
[2023-01-12] MEDS ORDERED: PHENAZOPYRIDINE 200 MG TAB PO STA (20:29)
[2023-01-12 21:10] VITALS: BP 124/91; PULSE 72; RESP 16
[2023-01-12 21:12] LABS: Glucose,Whole Blood 70 mg/dL (70-110)
== END 2023-01-12 21:45 | disposition home or self-care (01) ==
LOC: EC 16:39
DX: N39.0 Urinary tract infection, site not specified (principal); E11.9 Type 2 diabetes mellitus without complications; F90.9 Attention-deficit hyperactivity disorder, unspecified type; F41.9 Anxiety disorder, unspecified; F32.A Depression, unspecified; F17.200 Nicotine dependence, unspecified, uncomplicated; Z79.84 Long term (current) use of oral hypoglycemic drugs
CPT/HCPCS: 36415; 80053; 82150; 83605; 83690; 83735; 84100; 85025; 81001; 81025; 74176; 99284; 96372; J0696